=== PATIENT | female | born 2000 | race Caucasian/White ===

== ENCOUNTER 2020-10-06 15:53 | Outpatient (REF) | payer OTHER, SELFPAY ==
--- NOTE | ~2020-10-06 | XR_ITS ---
EXAMINATION: XR ANKLE, RIGHT CLINICAL INFORMATION: Sprain. COMPARISON: None TECHNIQUE: AP, lateral, and mortise views of the right ankle. FINDINGS: The bones and soft tissues are normal. No fracture. Alignment is anatomic. Joint spaces are maintained. No joint effusion. XR/XR ankle RT min 3V IMPRESSION: Normal right ankle.
== END 2020-10-06 15:54 | disposition home or self-care (01) ==
LOC: HO.HMGCX 15:53
PROVIDERS: Visit Provider Internal Medicine
DX: S93.401A Sprain of unspecified ligament of right ankle, initial encounter (principal)
CPT/HCPCS: 73610

== ENCOUNTER 2020-11-06 20:12 | Emergency (ER) | payer OTHER, SELFPAY ==
--- NOTE | ~2020-11-06 | XR_ITS ---
EXAMINATION: XR ABDOMEN KUB CLINICAL INDICATION: Diffuse abdominal discomfort COMPARISON: None TECHNIQUE: AP view of the abdomen. XR/XR KUB FINDINGS/IMPRESSION: Mild constipation. No evidence of obstruction. No unusual soft tissue calcifications are noted. The bones are unremarkable.
[2020-11-06 20:31] VITALS: BP 129/70; PULSE 89; RESP 18; TEMP 36.7; O2SAT 100; BMI 18.6
--- NOTE | 2020-11-06 22:17 | ED_ITS ---
HPI - Abdominal Pain General Chief Complaint: Abdominal Pain Stated Complaint: abdominal pain Time Seen by Provider: 11/06/20 21:31 Source: patient Mode of arrival: ambulatory History of Present Illness HPI narrative: 20-year-old female who presents with abdominal discomfort that has increased and is now reported as being diffuse without associated fever, chills, nausea, vomiting, shortness of breath/chest pain/palpitations, and last bowel movement was this morning. Otherwise, she is denying any urinary pain test burning/frequency. Patient takes Remeron as prescribed for appetite and denies any surgical history in the abdomen. Related Data Home Medications Medication Instructions Recorded Confirmed medroxyprogesterone 150 mg/mL 150 mg IM [id number] 10/06/20 intramuscular syringe omeprazole 20 mg capsule,delayed 20 mg PO DAILY 10/06/20 release Allergies Allergy/AdvReac Type Severity Reaction Status Date / Time No Known Allergies Allergy Unverified 10/06/20 15:23 [No Known Allergies*] Review of Systems Review of Systems Pertinent positives and negatives as stated in HPI 10 point review of systems is otherwise negative. Physical Exam Vital Signs: Vital Signs: Last Vital Signs Temp 98.7 F 11/07/20 00:00 Pulse 74 11/07/20 00:00 Resp 16 11/07/20 00:00 BP 105/64 11/07/20 00:00 Pulse Ox 98 11/07/20 00:00 Body Mass Index 18.6 VITAL SIGNS: Reviewed. GENERAL: Well developed, well nourished, in no acute distress. HEAD: Normocephalic/atraumatic EYES: PERRLA, EOMI OROPHARYNX: no oral lesions noted, posterior pharynx clear LUNGS: Normal breath sounds. No adventitious sounds or accessory muscle use. SpO2<98> CARDIOVASCULAR: Regular rate and rhythm without noted murmurs ABDOMEN: Soft, diffuse tenderness without rebound, non-distended with bowel sounds. NEUROLOGIC: Alert and oriented x 4. Strength and sensation to light touch were grossly intact x 4. Course Course Course Narrative: 20-year-old female with history and clinical presentation consistent with possible muscular etiology for abdominal discomfort the absence of any associated symptoms and denies diarrhea. Review of all investigations negative for any acute findings and patient declined combination analgesics and will be discharged home in stable condition with instructions to follow-up with her primary care provider in the morning. MDM - Abdominal Pain Lab Data Result diagrams: 11/06/20 22:53 11/06/20 22:53 Labs: Lab Results 11/06/20 11/06/20 11/06/20 Range/Units 22:53 22:53 22:53 WBC 8.9 (4.8-10.8) X10*3/uL RBC 4.07 L (4.20-5.50) X10*6/uL Hgb 12.9 (12.0-16.0) g/dl Hct 38.4 (37-47) % MCV 94.3 (80-98) fL MCH 31.7 (27.0-33.0) pg MCHC 33.6 (31.0-35.0) g/dl RDW 11.9 (11.0-16.0) % Plt Count 252 (160-400) X10*3/uL MPV 11.1 (9.4-12.3) fL Immature Gran % (Auto) 0.1 (0.0-0.4) % Neut % (Auto) 56.9 (45-73) % Lymph % (Auto) 32.9 (20-40) % [place] % (Auto) 8.7 (2-11) % Eos % (Auto) 1.1 (0-4) % Baso % (Auto) 0.3 (0-2) % Lymph # (Auto) 2.9 (1.2-4.9) X10*3/uL [place] # (Auto) 0.8 (0.1-1.2) X10*3/uL Eos # (Auto) 0.1 (0.0-0.4) X10*3/uL Baso # (Auto) 0.0 (0.0-0.2) X10*3/uL Abs Immat Gran (auto) 0.01 (0.00-0.03) X10*3/uL Absolute Neuts (auto) 5.0 (2.0-8.3) X10*3/uL Absolute Nucleated RBC 0.000 (0.0-0.012) X10*3/uL Nucleated RBC % (auto) 0.0 (0.0-0.2) /100WBC Sodium 143 (135-145) mmol/L Potassium 3.6 (3.3-5.1) mmol/L Chloride 108 (96-108) mmol/L Carbon Dioxide 27 (22-29) mmol/L Anion Gap 12 (12-20) BUN 14 (9-16) mg/dL Creatinine 0.71 (0.5-1.4) mg/dL Estim Creat Clear Calc 94.2 Estimated GFR > 60 Random Glucose 76 (60-115) mg/dL Calcium 9.2 (8.4-10.2) mg/dL Total Bilirubin 0.4 (0.0-1.0) mg/dL AST 24 (5-31) U/L ALT 23 (0-31) U/L Alkaline Phosphatase 94 (39-117) U/L Total Protein 7.2 (6.5-8.0) g/dL Albumin 4.2 (3.5-5.0) g/dL Lipase 49 (8-78) U/L Urine Color YELLOW Urine Appearance CLEAR Urine pH 6.5 (5.0-8.0) Ur Specific [place] 1.020 (1.005-1.025) Urine Protein NEG (NEG-TRACE) MG/DL Urine Glucose (UA) NEG (NEG) MG/DL Urine Ketones NEG (NEG) MG/DL Urine Blood TRACE (NEG) Urine Nitrite NEG (NEG) Ur Leukocyte Esterase NEG (NEG) Urine RBC 1-4 (0) /HPF Urine WBC 0 (0-4) /HPF Ur Squamous Epith Cells 1+ /LPF Urine Bacteria TRACE /LPF Urine Test (NEGATIVE) 11/06/20 Range/Units 22:53 WBC (4.8-10.8) X10*3/uL RBC (4.20-5.50) X10*6/uL Hgb (12.0-16.0) g/dl Hct (37-47) % MCV (80-98) fL MCH (27.0-33.0) pg MCHC (31.0-35.0) g/dl RDW (11.0-16.0) % Plt Count (160-400) X10*3/uL MPV (9.4-12.3) fL Immature Gran % (Auto) (0.0-0.4) % Neut % (Auto) (45-73) % Lymph % (Auto) (20-40) % [place] % (Auto) (2-11) % Eos % (Auto) (0-4) % Baso % (Auto) (0-2) % Lymph # (Auto) (1.2-4.9) X10*3/uL [place] # (Auto) (0.1-1.2) X10*3/uL Eos # (Auto) (0.0-0.4) X10*3/uL Baso # (Auto) (0.0-0.2) X10*3/uL Abs Immat Gran (auto) (0.00-0.03) X10*3/uL Absolute Neuts (auto) (2.0-8.3) X10*3/uL Absolute Nucleated RBC (0.0-0.012) X10*3/uL Nucleated RBC % (auto) (0.0-0.2) /100WBC Sodium (135-145) mmol/L Potassium (3.3-5.1) mmol/L Chloride (96-108) mmol/L Carbon Dioxide (22-29) mmol/L Anion Gap (12-20) BUN (9-16) mg/dL Creatinine (0.5-1.4) mg/dL Estim Creat Clear Calc Estimated GFR Random Glucose (60-115) mg/dL Calcium (8.4-10.2) mg/dL Total Bilirubin (0.0-1.0) mg/dL AST (5-31) U/L ALT (0-31) U/L Alkaline Phosphatase (39-117) U/L Total Protein (6.5-8.0) g/dL Albumin (3.5-5.0) g/dL Lipase (8-78) U/L Urine Color Urine Appearance Urine pH (5.0-8.0) Ur Specific [place] (1.005-1.025) Urine Protein (NEG-TRACE) MG/DL Urine Glucose (UA) (NEG) MG/DL Urine Ketones (NEG) MG/DL Urine Blood (NEG) Urine Nitrite (NEG) Ur Leukocyte Esterase (NEG) Urine RBC (0) /HPF Urine WBC (0-4) /HPF Ur Squamous Epith Cells /LPF Urine Bacteria /LPF Urine Test NEGATIVE (NEGATIVE) Discharge Plan Discharge Clinical Impression: Abdominal discomfort Patient Disposition: Home, Self-Care Instructions: Abdominal Pain (ED) Additional Instructions: Follow-up with your primary care provider in the morning for re-evaluation and further outpatient management of your symptoms. Return to the ER for any acute worsening of your symptoms. Prescriptions: No Action medroxyprogesterone 150 mg/mL syringe 150 mg IM [id number] RF: 0 omeprazole 20 mg capsule,delayed release(DR/EC) 20 mg PO DAILY RF: 0 Referrals: Jah Stallings MD [Primary Care Provider] - 2 days (Patient seen for abdominal pain with a negative workup.) PMFSH Past Medical History Source: nursing notes reviewed Social History Social History Advance Directives: No Advance Directives Information Provided: No Patient : No
[2020-11-06 23:00] LABS: MANUAL DIFF FLAG NO
[2020-11-06 23:01] LABS: Basophils Percent Auto 0.3 % (0-2); Eosinophils Absolute Auto 0.1 X10*3/uL (0.0-0.4); Eosinophils Percent Auto 1.1 % (0-4); Glucose Urine UA NEG (NEG); Hematocrit 38.4 % (37-47); Hemoglobin 12.9 g/dl (12.0-16.0); Imm Gran Abs Auto 0.01 X10*3/uL (0.00-0.03); Imm Gran Pct Auto 0.1 % (0.0-0.4); Leukocyte Esterase Urine NEG (NEG); Lymphocytes Absolute Auto 2.9 X10*3/uL (1.2-4.9); Lymphocytes Percent Auto 32.9 % (20-40); Mean Corpuscular HGB Conc 33.6 g/dl (31.0-35.0); Mean Corpuscular Hemoglobin 31.7 pg (27.0-33.0); Mean Corpuscular Volume 94.3 fL (80-98); Mean Platelet Volume 11.1 fL (9.4-12.3); Monocytes Absolute Auto 0.8 X10*3/uL (0.1-1.2); Monocytes Percent Auto 8.7 % (2-11); Neutrophils Percent Auto 56.9 % (45-73); Nitrite Urine NEG (NEG); PH 6.5 (5.0-8.0); Platelet Count 252 X10*3/uL (160-400); Red Blood Count 4.07 X10*6/uL (4.20-5.50); Red Cell Distribution Width 11.9 % (11.0-16.0); Urine Blood TRACE (NEG); Urine Ketones NEG (NEG); Urine Protein NEG (NEG-TRACE); White Blood Count 8.9 X10*3/uL (4.8-10.8)
[2020-11-06 23:03] LABS: Appearance Urine CLEAR; Color Urine YELLOW
[2020-11-06 23:04] LABS: UPreg QC Valid YES; Urine Pregnancy NEGATIVE (NEGATIVE)
[2020-11-06 23:14] LABS: Bacteria Urine TRACE /LPF; Squamous Epithelial Cell Urine 1+ /LPF; WBC Urine 0 /HPF (0-4)
[2020-11-06 23:24] LABS: Alanine Aminotransferase 23 U/L (0-31); Albumin Level 4.2 g/dL (3.5-5.0); Alkaline Phosphatase 94 U/L (39-117); Anion Gap 12 (12-20); Aspartate Amino Transferase 24 U/L (5-31); Bilirubin Total 0.4 mg/dL (0.0-1.0); Blood Urea Nitrogen 14 mg/dL (9-16); Calcium 9.2 mg/dL (8.4-10.2); Carbon Dioxide 27 mmol/L (22-29); Chloride 108 mmol/L (96-108); Creatinine Clr Calc Pharmacy 94.2; Estimated Glomerular Filt Rate > 60; Glucose Random 76 mg/dL (60-115); Lipase 49 U/L (8-78); Potassium 3.6 mmol/L (3.3-5.1); Sodium 143 mmol/L (135-145); Total Protein 7.2 g/dL (6.5-8.0)
[2020-11-07] VITALS: BP 105/64; PULSE 74; RESP 16; TEMP 37.1; O2SAT 98
--- NOTE | 2020-11-07 00:36 | PC.NURSE ---
dr palomo aware pt refusing po meds as ordered
== END 2020-11-07 02:15 | disposition home or self-care (01) ==
PROVIDERS: Emergency Provider Student in an Organized Health Care Education/Training Program; PCP Internal Medicine
DX: R10.9 Unspecified abdominal pain (principal)
CPT/HCPCS: 36415; 74018; 80053; 81001; 81003; 81025; 83690; 85025; 99283; 99284

== ENCOUNTER 2021-08-03 13:35 | Emergency (ER) | payer OTHER, SELFPAY ==
[2021-08-03 13:57] VITALS: BP 117/81; PULSE 77; RESP 19; TEMP 37.1; O2SAT 99; BMI 18.6
[2021-08-03 14:41] LABS: MANUAL DIFF FLAG NO
[2021-08-03 14:42] LABS: Basophils Percent Auto 0.4 % (0-2); Eosinophils Absolute Auto 0.1 X10*3/uL (0.0-0.4); Eosinophils Percent Auto 0.7 % (0-4); Hematocrit 36.7 % (37.0-47.0); Hemoglobin 12.3 g/dl (12.0-16.0); Imm Gran Abs Auto 0.01 X10*3/uL (0.00-0.03); Imm Gran Pct Auto 0.1 % (0.0-0.4); Lymphocytes Absolute Auto 2.7 X10*3/uL (1.2-4.9); Lymphocytes Percent Auto 36.8 % (20-40); Mean Corpuscular HGB Conc 33.5 g/dl (31.0-35.0); Mean Corpuscular Hemoglobin 31.1 pg (27.0-33.0); Mean Corpuscular Volume 92.9 fL (80.0-98.0); Mean Platelet Volume 11.7 fL (9.4-12.3); Monocytes Absolute Auto 0.5 X10*3/uL (0.1-1.2); Monocytes Percent Auto 6.9 % (2-11); Neutrophils Percent Auto 55.1 % (45-73); Platelet Count 203 X10*3/uL (160-400); Red Blood Count 3.95 X10*6/uL (4.20-5.50); Red Cell Distribution Width 11.8 % (11.0-16.0); White Blood Count 7.3 X10*3/uL (4.8-10.8)
[2021-08-03 14:56] LABS: Appearance Urine HAZY; Color Urine YELLOW; Glucose Urine UA NEG (NEG); Leukocyte Esterase Urine NEG (NEG); Nitrite Urine NEG (NEG); PH 5.5 (5.0-8.0); Specific Gravity - Urine >= 1.030 (1.005-1.025); UACC Culture Trigger NO; Urine Blood TRACE (NEG); Urine Ketones 5 MG/DL (NEG); Urine Protein NEG (NEG-TRACE)
[2021-08-03 14:58] LABS: Alanine Aminotransferase 12 U/L (0-31); Albumin Level 4.4 g/dL (3.5-5.0); Alkaline Phosphatase 74 U/L (39-117); Anion Gap 12 (12-20); Aspartate Amino Transferase 20 U/L (5-31); Bilirubin Direct 0.4 mg/dL (0.0-0.5); Bilirubin Total 1.1 mg/dL (0.0-1.0); Blood Urea Nitrogen 14 mg/dL (9-16); Calcium 9.6 mg/dL (8.4-10.2); Carbon Dioxide 24 mmol/L (22-29); Chloride 107 mmol/L (96-108); Creatinine Clr Calc Pharmacy 92.9; Estimated Glomerular Filt Rate > 60; Glucose Random 88 mg/dL (60-115); Lipase 33 U/L (8-78); Potassium 3.9 mmol/L (3.3-5.1); Sodium 139 mmol/L (135-145); Total Protein 7.3 g/dL (6.5-8.0)
[2021-08-03 14:58] LABS: UPreg QC Valid YES; Urine Pregnancy NEGATIVE (NEGATIVE)
[2021-08-03 15:09] LABS: RBC Urine 0-2 /HPF (0); Squamous Epithelial Cell Urine 1+ /LPF; WBC Urine 0-2 /HPF (0-4)
[2021-08-03 15:10] LABS: Bacteria Urine TRACE /LPF; Mucus Urine 1+ /LPF
--- NOTE | 2021-08-03 15:13 | ED_ITS ---
HPI - Abdominal Pain General Chief Complaint: Abdominal Pain Stated Complaint: abd pain Time Seen by Provider: 08/03/21 14:07 Source: patient Mode of arrival: ambulatory Limitations: no limitations History of Present Illness HPI narrative: 20 y/o female presenting to the ER with 1 week of upper abdominal pain and n ausea. She also reports 1 episode of non-bloody diarrhea today. She states the pain is worse in the morning and worse on an empty stomach. She also states that whenever she eats the pain is worse. It is a gnawing and aching type pain. She denies any radiation. She reports ongoing nausea but no episodes of vomiting. She had similar episodes couple years ago, was seen by a GI doctor and was told was due to the marijuana she was smoking. She stopped smoking marijuana for several weeks with no improvement in her symptoms. She states she has been having difficulty gaining weight. She has been only able to tolerate a very limited diet including soup and bland things. MD elicited complaint: abdominal pain Pertinent past history: none Onset (ago): week(s) (1) Pain Consistency: constant Location: epigastric Severity: severe Quality: aching Radiation: none Migration to: no migration Exacerbating factors: eating and other (morning) Relieving factors: nothing Associated symptoms: nausea and diarrhea (once, nonbloody) Related Data Patient : No Home Medications Medication Instructions Recorded Confirmed medroxyprogesterone 150 mg/mL 150 mg IM [id number] 10/06/20 intramuscular syringe omeprazole 20 mg capsule,delayed 20 mg PO DAILY 10/06/20 release Previous Rx's Medication Instructions Recorded pantoprazole 40 mg tablet,delayed 40 mg PO DAILY #30 tab 08/03/21 release (Protonix) sucralfate 1 gram tablet (Carafate) 1 g PO BID #30 tab 08/03/21 Allergies Allergy/AdvReac Type Severity Reaction Status Date / Time No Known Allergies Allergy Unverified 10/06/20 15:23 [No Known Allergies*] Review of Systems Review of Systems Constitutional: No Fever, No Chills ENT/Mouth: No sore throat, No Rhinorrhea, No Swallowing Difficulty Cardiovascular: No Chest Pain, No SOB Respiratory: No Cough, No Sputum Gastrointestinal: + Nausea, No Vomiting, + Diarrhea, + abdominal Pain, No Hematochezia, No Melena Genitourinary: No Dysuria, No Urinary Frequency, No Hematuria Musculoskeletal: No joint pain, No Myalgias Skin: No Skin Lesions, No rash Neuro: No Weakness, No Numbness, No Dizziness, No Headache Psych: + Anxiety/Panic, + Depression Heme/Lymph: No Bruising, No Lymphadenopathy PMFSH Past Medical History Medical History (Updated 08/03/21 @ 15:27 by EVONNE De La Torre) Anemia Social History Social History Advance Directives: No Advance Directives Information Provided: No Patient : No Physical Exam ED Vital Signs: Vital Signs - 24 hr 08/03/21 13:57 Temperature 98.8 F Pulse Rate 77 Respiratory Rate 19 Blood Pressure 117/81 Pulse Oximetry 99 BMI result Body Mass Index 18.6 Appearance: Alert. Oriented X3. No acute distress. Eyes: Pupils equal, round and reactive to light. ENT: Pharynx normal. Neck: Normal inspection. Neck supple. CVS: Normal heart rate and rhythm. Pulses normal. Respiratory: No respiratory distress. Breath sounds normal. Abdomen: Flat, Soft with mild epigastric tenderness. no rebound or guarding. No RUQ tenderness. normal +BS x4 Skin: Skin warm and dry. Normal skin color. Normal skin turgor. No rashes. Extremities: No lower extremity edema. Neuro: Oriented X 3. No motor deficit. No sensory deficit. Course Course Course Narrative: 28-year-old female presents to the ER with epigastric pain for the last 1 week, worse with food. Her vital signs are normal on arrival in her exam is benign. Her abdomen is soft. Her labs are normal. Her symptoms may be due to gastritis versus possible peptic ulcers. She has no signs of GI bleeding. Will plan to start her on higher dose PPI and Carafate. Will refer to GI for further evaluation and treatment. Instructed to keep a food diary to observe any connections with her symptoms to certain foods. She states she has been tested for celiac disease in the past and it was negative. She agrees to follow back up with GI for further evaluation. MDM - Abdominal Pain Lab Data Result diagrams: 08/03/21 14:37 08/03/21 14:37 Labs: Lab Results 08/03/21 08/03/21 08/03/21 Range/Units 14:37 14:37 14:46 WBC 7.3 (4.8-10.8) X10*3/uL RBC 3.95 L (4.20-5.50) X10*6/uL Hgb 12.3 (12.0-16.0) g/dl Hct 36.7 L (37.0-47.0) % MCV 92.9 (80.0-98.0) fL MCH 31.1 (27.0-33.0) pg MCHC 33.5 (31.0-35.0) g/dl RDW 11.8 (11.0-16.0) % Plt Count 203 (160-400) X10*3/uL MPV 11.7 (9.4-12.3) fL Immature Gran % (Auto) 0.1 (0.0-0.4) % Neut % (Auto) 55.1 (45-73) % Lymph % (Auto) 36.8 (20-40) % [place] % (Auto) 6.9 (2-11) % Eos % (Auto) 0.7 (0-4) % Baso % (Auto) 0.4 (0-2) % Lymph # (Auto) 2.7 (1.2-4.9) X10*3/uL [place] # (Auto) 0.5 (0.1-1.2) X10*3/uL Eos # (Auto) 0.1 (0.0-0.4) X10*3/uL Baso # (Auto) 0.0 (0.0-0.2) X10*3/uL Abs Immat Gran (auto) 0.01 (0.00-0.03) X10*3/uL Absolute Neuts (auto) 4.0 (2.0-8.3) x10*3/uL Absolute Nucleated RBC 0.000 (0.0-0.012) X10*3/uL Nucleated RBC % (auto) 0.0 (0.0-0.2) /100WBC Sodium 139 (135-145) mmol/L Potassium 3.9 (3.3-5.1) mmol/L Chloride 107 (96-108) mmol/L Carbon Dioxide 24 (22-29) mmol/L Anion Gap 12 (12-20) BUN 14 (9-16) mg/dL Creatinine 0.72 (0.5-1.4) mg/dL Estim Creat Clear Calc 92.9 Estimated GFR > 60 Random Glucose 88 (60-115) mg/dL Calcium 9.6 (8.4-10.2) mg/dL Total Bilirubin 1.1 H (0.0-1.0) mg/dL Direct Bilirubin 0.4 (0.0-0.5) mg/dL AST 20 (5-31) U/L ALT 12 (0-31) U/L Alkaline Phosphatase 74 D (39-117) U/L Total Protein 7.3 (6.5-8.0) g/dL Albumin 4.4 (3.5-5.0) g/dL Lipase 33 (8-78) U/L Urine Color YELLOW Urine Appearance HAZY Urine pH 5.5 (5.0-8.0) Ur Specific [place] >= 1.030 H (1.005-1.025) Urine Protein NEG (NEG-TRACE) MG/DL Urine Glucose (UA) NEG (NEG) MG/DL Urine Ketones 5 (NEG) MG/DL Urine Blood TRACE (NEG) Urine Nitrite NEG (NEG) Ur Leukocyte Esterase NEG (NEG) Urine RBC 0-2 (0) /HPF Urine WBC 0-2 (0-4) /HPF Ur Squamous Epith Cells 1+ /LPF Urine Bacteria TRACE /LPF Urine Mucus 1+ /LPF Urine Test (NEGATIVE) 08/03/21 Range/Units 14:46 WBC (4.8-10.8) X10*3/uL RBC (4.20-5.50) X10*6/uL Hgb (12.0-16.0) g/dl Hct (37.0-47.0) % MCV (80.0-98.0) fL MCH (27.0-33.0) pg MCHC (31.0-35.0) g/dl RDW (11.0-16.0) % Plt Count (160-400) X10*3/uL MPV (9.4-12.3) fL Immature Gran % (Auto) (0.0-0.4) % Neut % (Auto) (45-73) % Lymph % (Auto) (20-40) % [place] % (Auto) (2-11) % Eos % (Auto) (0-4) % Baso % (Auto) (0-2) % Lymph # (Auto) (1.2-4.9) X10*3/uL [place] # (Auto) (0.1-1.2) X10*3/uL Eos # (Auto) (0.0-0.4) X10*3/uL Baso # (Auto) (0.0-0.2) X10*3/uL Abs Immat Gran (auto) (0.00-0.03) X10*3/uL Absolute Neuts (auto) (2.0-8.3) x10*3/uL Absolute Nucleated RBC (0.0-0.012) X10*3/uL Nucleated RBC % (auto) (0.0-0.2) /100WBC Sodium (135-145) mmol/L Potassium (3.3-5.1) mmol/L Chloride (96-108) mmol/L Carbon Dioxide (22-29) mmol/L Anion Gap (12-20) BUN (9-16) mg/dL Creatinine (0.5-1.4) mg/dL Estim Creat Clear Calc Estimated GFR Random Glucose (60-115) mg/dL Calcium (8.4-10.2) mg/dL Total Bilirubin (0.0-1.0) mg/dL Direct Bilirubin (0.0-0.5) mg/dL AST (5-31) U/L ALT (0-31) U/L Alkaline Phosphatase (39-117) U/L Total Protein (6.5-8.0) g/dL Albumin (3.5-5.0) g/dL Lipase (8-78) U/L Urine Color Urine Appearance Urine pH (5.0-8.0) Ur Specific [place] (1.005-1.025) Urine Protein (NEG-TRACE) MG/DL Urine Glucose (UA) (NEG) MG/DL Urine Ketones (NEG) MG/DL Urine Blood (NEG) Urine Nitrite (NEG) Ur Leukocyte Esterase (NEG) Urine RBC (0) /HPF Urine WBC (0-4) /HPF Ur Squamous Epith Cells /LPF Urine Bacteria /LPF Urine Mucus /LPF Urine Test NEGATIVE (NEGATIVE) Critical Care Time Critical Care Time Critical Care Time: No Discharge Plan Discharge Clinical Impression: Gastritis Patient Disposition: Home, Self-Care Instructions: Gastritis (DC), Diet for Stomach Ulcers and Gastritis (ED) Additional Instructions: Your lab workup today was unremarkable. Your pain is most likely due to gastritis which is and irritation and inflammation of your stomach lining. Start taking the prescribed medication as directed for this. Stick to a bland diet. Avoid foods high in acid, avoid alcohol and NSAID medications like Aleve, Motrin, Advil or ibuprofen. Follow up with your doctor as needed. Follow up with GI doctor if you symptoms persist despite dietary modifications and medication. If you develop new or worsening symptoms call 911 or come back to the ER for further evaluation. Prescriptions: New pantoprazole [Protonix] 40 mg tablet,delayed release (DR/EC) 40 mg PO DAILY Qty: 30 0RF sucralfate [Carafate] 1 gram tablet 1 g PO BID Qty: 30 0RF No Action medroxyprogesterone 150 mg/mL syringe 150 mg IM [id number] 0RF omeprazole 20 mg capsule,delayed release(DR/EC) 20 mg PO DAILY 0RF Referrals: Hua Lozada MD [Physician] - 1 week (gastritis vs PUD)
== END 2021-08-03 15:53 | disposition home or self-care (01) ==
PROVIDERS: Emergency Provider Emergency Medicine
DX: K29.70 Gastritis, unspecified, without bleeding (principal); R10.9 Unspecified abdominal pain
CPT/HCPCS: 36415; 80048; 80076; 81001; 81025; 83690; 85025; 99283; 99284

== ENCOUNTER 2021-10-27 12:42 | Outpatient (REF) | payer OTHER, SELFPAY ==
[2021-10-27 12:55] LABS: MANUAL DIFF FLAG NO
[2021-10-27 13:25] LABS: Basophils Percent Auto 0.4 % (0-2); Eosinophils Absolute Auto 0.1 X10*3/uL (0.0-0.4); Eosinophils Percent Auto 1.1 % (0-4); Hematocrit 35.7 % (37.0-47.0); Hemoglobin 12.2 g/dl (12.0-16.0); Imm Gran Abs Auto 0.02 X10*3/uL (0.00-0.03); Imm Gran Pct Auto 0.2 % (0.0-0.4); Lymphocytes Absolute Auto 2.9 X10*3/uL (1.2-4.9); Mean Corpuscular HGB Conc 34.2 g/dl (31.0-35.0); Mean Corpuscular Hemoglobin 31.6 pg (27.0-33.0); Mean Corpuscular Volume 92.5 fL (80.0-98.0); Mean Platelet Volume 12.2 fL (9.4-12.3); Monocytes Absolute Auto 0.5 X10*3/uL (0.1-1.2); Monocytes Percent Auto 5.9 % (2-11); Neutrophils Percent Auto 58.4 % (45-73); Platelet Count 217 X10*3/uL (160-400); Red Blood Count 3.86 X10*6/uL (4.20-5.50); Red Cell Distribution Width 11.9 % (11.0-16.0); White Blood Count 8.5 X10*3/uL (4.8-10.8)
[2021-10-27 13:35] LABS: Alanine Aminotransferase 10 U/L (0-31); Albumin Level 4.4 g/dL (3.5-5.0); Alkaline Phosphatase 80 U/L (39-117); Anion Gap 12 (12-20); Aspartate Amino Transferase 17 U/L (5-31); Bilirubin Total 1.1 mg/dL (0.0-1.0); Blood Urea Nitrogen 11 mg/dL (9-16); C Reactive Protein 0.04 mg/dL (< or = 0.50); Calcium 9.3 mg/dL (8.4-10.2); Carbon Dioxide 23 mmol/L (22-29); Chloride 108 mmol/L (96-108); Estimated Glomerular Filt Rate > 60; Glucose Random 89 mg/dL (60-115); Potassium 3.9 mmol/L (3.3-5.1); Sodium 139 mmol/L (135-145); Total Protein 7.4 g/dL (6.5-8.0)
[2021-10-27 13:58] LABS: Ferritin 128 ng/mL (10-122); TSH reflex Free T4 1.05 uIU/mL (0.32-4.0); Vitamin D 25-OH Total 29.7 ng/mL (>30)
[2021-10-27 14:01] LABS: Cortisol Random 5.4 ug/dL
[2021-10-27 14:12] LABS: Folate 15.1 ng/mL (> or = 4.0); Vitamin B12 546 pg/mL (200-900)
[2021-10-27 16:07] LABS: Appearance Urine CLOUDY; Color Urine DK YELLOW; Glucose Urine UA NEG (NEG); Leukocyte Esterase Urine 2+ (NEG); Nitrite Urine NEG (NEG); Specific Gravity - Urine >= 1.030 (1.005-1.025); UACC Culture Trigger YES; Urine Blood 3+ (NEG); Urine Ketones NEG (NEG); Urine Protein TRACE MG/DL (NEG-TRACE)
[2021-10-27 16:25] LABS: Bacteria Urine 3+ /LPF; Mucus Urine 1+ /LPF; Squamous Epithelial Cell Urine 3+ /LPF; WBC Clumps Urine NOTED; WBC Urine 50-75 /HPF (0-4)
[2021-10-31 23:58] LABS: Vitamin B5 (Pantothenic Acid) <40 ng/mL (<275)
[2021-11-01 00:57] LABS: Zinc 67 mcg/dL (60-130)
[2021-11-01 11:47] LABS: Nicotinamide <20 ng/mL; Vit B3 - Nicotinic Acid <20 ng/mL
[2021-11-02 06:36] LABS: Transglutaminase Ab IgG <1.0 U/mL; Transglutaminase IgA <1.0 U/mL
== END 2021-10-27 12:43 | disposition home or self-care (01) ==
LOC: HO.LAB 12:42
PROVIDERS: Visit Provider Internal Medicine Gastroenterology
DX: R10.33 Periumbilical pain (principal); R10.10 Upper abdominal pain, unspecified; R30.0 Dysuria; D64.9 Anemia, unspecified; G89.29 Other chronic pain; K75.81 Nonalcoholic steatohepatitis (NASH)
CPT/HCPCS: 36415; 80053; 81001; 82180; 82306; 82533; 82550; 82607; 82728; 82746; 84443; 84591; 84630; 85025; 86140; 86364; 87086

== ENCOUNTER 2021-10-30 06:15 | Outpatient (REF) | payer OTHER, SELFPAY ==
[2021-10-30 09:13] LABS: Appearance Urine HAZY; Color Urine YELLOW; Glucose Urine UA NEG (NEG); Leukocyte Esterase Urine 1+ (NEG); Nitrite Urine NEG (NEG); Specific Gravity - Urine >= 1.030 (1.005-1.025); UACC Culture Trigger YES; Urine Blood 2+ (NEG); Urine Ketones 5 MG/DL (NEG); Urine Protein 1+ MG/DL (NEG-TRACE)
[2021-10-30 09:49] LABS: Mucus Urine 1+ /LPF; Squamous Epithelial Cell Urine 1+ /LPF
[2021-10-30 09:50] LABS: Bacteria Urine 1+ /LPF
[2021-11-03 15:33] LABS: Vitamin A 28 mcg/dL (38-98)
[2021-11-05 13:27] LABS: Vitamin B6 18.2 ng/mL (2.1-21.7)
== END 2021-10-30 06:16 | disposition home or self-care (01) ==
LOC: HO.LAB 06:15
PROVIDERS: Visit Provider Internal Medicine Gastroenterology
DX: R10.10 Upper abdominal pain, unspecified (principal); D64.9 Anemia, unspecified; R30.0 Dysuria
CPT/HCPCS: 36415; 81001; 84207; 84590; 87086

== ENCOUNTER 2021-11-17 14:48 | Outpatient (REF) | payer OTHER, SELFPAY ==
[2021-11-18 14:12] LABS: H Pylori Breath Test Negative (Negative)
== END 2021-11-17 14:49 | disposition home or self-care (01) ==
LOC: HO.LNP 14:48
PROVIDERS: Visit Provider Internal Medicine Gastroenterology
DX: R10.10 Upper abdominal pain, unspecified (principal); R30.0 Dysuria
CPT/HCPCS: 83013

== ENCOUNTER 2021-12-11 12:35 | Outpatient (REF) | payer OTHER, SELFPAY ==
--- NOTE | ~2021-12-11 | US_ITS ---
EXAMINATION: US ABDOMEN COMPLETE CLINICAL INFORMATION: Abdominal pain. COMPARISON: X-ray KUB 11/07/2020. TECHNIQUE: Real-time imaging of the abdominal viscera. FINDINGS: PANCREAS: Normal. ABDOMINAL AORTA: The proximal, mid, and distal segments are normal in caliber. INFERIOR VENA CAVA: Visualized portions are normal. LIVER: Normal. The liver is normal in size. The liver contour is normal. Parenchymal echogenicity is normal. No focal hepatic lesion. There is no intrahepatic biliary duct dilatation seen. GALLBLADDER: Normal. The gallbladder is physiologically distended without evidence of stones, sludge, polyps, wall thickening or pericholecystic fluid. COMMON BILE DUCT: Normal in caliber measuring 0.18 cm in diameter. RIGHT KIDNEY: Normal. No hydronephrosis. No renal calculi or focal parenchymal lesions. The kidney measures 10.5 cm in maximum dimension. LEFT KIDNEY: Normal. No hydronephrosis. No renal calculi or focal parenchymal lesions. The kidney measures 9.0 cm in maximum dimension. SPLEEN: Normal. The spleen measures 8.3 cm in maximum dimension. FREE FLUID: None. US/US abdomen complete IMPRESSION: Unremarkable examination.
--- NOTE | ~2021-12-11 | US_ITS ---
EXAMINATION: US PELVIS CLINICAL INFORMATION: Dysuria; the last menstrual period was greater than 3 years prior. COMPARISON: None TECHNIQUE: Ultrasound of the pelvis is performed using both transabdominal and transvaginal transducers along with Doppler. Transvaginal imaging is performed due to inadequate visualization transabdominally. FINDINGS: Uterus: The uterus is anteverted and measures 6.2 x 3.0 x 3.6 cm. There is an arcuate configuration of the uterus. The double wall endometrial thickness is 3-5 mm. The uterus is smooth in contour and has normal myometrial echogenicity. No visible fibroid. Adnexa: Both ovaries are visualized. There is normal color flow to the adnexa. No adnexal masses seen. There is no ovarian torsion. There is a very small amount of free fluid within the cul-de-sac. Right ovary measures 2.9 x 2.1 x 2.9 cm (volume 8.9 mL). Left ovary measures 2.4 x 1.7 x 1.8 cm (volume 3.7 mL). US/US pelvic and transvaginal IMPRESSION: 1. There is a somewhat arcuate configuration of the uterus. 2. There is a very small amount of nonspecific free fluid within the cul-de-sac.
== END 2021-12-11 12:36 | disposition home or self-care (01) ==
LOC: HO.US 12:35
PROVIDERS: Visit Provider Internal Medicine Gastroenterology
DX: R10.10 Upper abdominal pain, unspecified (principal); R30.0 Dysuria
CPT/HCPCS: 76700; 76830; 76856

== ENCOUNTER 2022-01-11 13:15 | Day surgery (SDC) | payer OTHER, SELFPAY ==
[2022-01-11 13:41] VITALS: BMI 18.6
[2022-01-11] MEDS: Lactated Ringers 1,000 ML 50 ML IVCONT (13:54)
--- NOTE | 2022-01-11 13:55 | HO.ANESPROP2 ---
HPI - Anesthesia Eval Consult details Narrative: 21 F for EGD Anemia . h/o right sided chest pain . As per PCP muskuloskeletal in nature . Currently denies any chest pain . Functional status greater than 4 mets PMFSH Active Problems Active Problems: All Active Problems (Updated 10/27/21 @ 12:26 by Jovan Moran MD) Anemia (Acute) Upper abdominal pain (Acute) Dysuria (Acute) Ankle sprain (Acute) Past Medical History Medical History (Updated 10/27/21 @ 12:26 by Jovan Moran MD) Anemia Family History Family History (Updated 10/27/21 @ 12:00 by RUSSEL Amador) Maternal Grandmother Diabetes Maternal Grandfather Throat cancer Maternal Aunt Breast cancer Family history of problems with anesthesia: No Surgical History History of Problems with Anesthesia: No Social History Social History Patient Tobacco Use Status: Never used Tobacco Meds Allergies Allergy/AdvReac Type Severity Reaction Status Date / Time No Known Allergies Allergy Unverified 10/27/21 11:58 [No Known Allergies*] Active Medications: Current Medications Lactated Ringer's (Lr) 1,000 mls @ 50 mls/hr IVCONT .Q20H CARMEN Lactated Ringer's (Lr) 1,000 mls @ 50 mls/hr IVCONT .Q20H CARMEN Last Admin: 01/11/22 13:54 Dose: 50 mls/hr Home Medications Medication Instructions Recorded Confirmed Last Taken Type medroxyprogesterone 150 mg/mL 150 mg IM [id number] 10/06/20 Unknown History intramuscular syringe omeprazole 20 mg capsule,delayed 20 mg PO DAILY 10/06/20 Unknown History release Exam Exam Date and Time: January 11, 2022 1355 Height,Weight and Vital Signs: Height 5 ft 3 in Weight 47.627 kg Airway Mallampati Class: III TM Dist: >3cm Neck ROM: Full Loose/Missing/Broken Teeth: Yes Heart: S1,S2 Lungs: b/l breath sounds Assessment and Plan Assessment Anesthesia Assessment: Anesthesia Plan Discussed and Chart Reviewed Final Anesthetic Review Family History of Problems with Anesthesia: No History of Problems with Anesthesia: No NPO: Yes ASA Class: II Final Preanesthetic Review: Meds/Allgs Chart Reviewed, Consent Obtained/Reviewed and Anes Risks/Benef Reviewed Patient Risk: Intermediate Procedure Risk: Intermediate Anesthetic Plan Anesthetic Plan: MAC: Disposition: Standard PACU
[2022-01-11 13:58] VITALS: BP 115/69; PULSE 72; RESP 16; TEMP 36.8; O2SAT 100
[2022-01-11 14:06] LABS: UPreg QC Valid YES; Urine Pregnancy NEGATIVE (NEGATIVE)
[2022-01-11 14:08] LABS: Appearance Urine Hazy; Color Urine Yellow; Glucose Urine UA Negative (Negative); Leukocyte Esterase Urine Small (1+) (Negative); Nitrite Urine Negative (Negative); PH 5.5 (5.0-8.0); Specific Gravity - Urine >= 1.030 (1.005-1.025); Urine Blood Small (1+) (Negative); Urine Ketones Trace mg/dL (Negative); Urine Protein Negative (Neg-Trace)
--- NOTE | 2022-01-11 14:40 | MHC.SHP ---
Pre-Procedural Eval Section A Date of Service: 01/11/22 Section B Chief Complaint: Dysuria,Upper abdominal pain, Relevant Family History (Specify if Yes): No Relevant Social History: Other (specify) (e cigarettes ) Present Medications: see Short Stay Collaborative assessment Medical History: Significant History (anemia) History of Previous Operations: No relevant previous surgery Allergies: Allergies Allergy/AdvReac Type Severity Reaction Status Date / Time No Known Allergies Allergy Unverified 10/27/21 11:58 [No Known Allergies*] Review of Systems Sugical H&P ROS: Negative: Constitution, Cardiovascular, Respiratory, Neurological, Psychiatric, Hem-Onc, Allergic/Immunologic, Gastrointestinal, Genitourinary, Musculoskeletal, Integumentary, Endocrine and Eyes/Ears/Nose/Throat Exam Surgical H&P Exam: Normal: HEENT, Normal: Heart, Normal: Lungs, Normal: Extremities, Normal: Abdomen, Normal: Skin and Normal: Neurological Plan Diagnosis/Plan: Unchanged I have reviewed the history and physical and performed a pertinent physical examination on my patient. No changes have occurred unless specified.
--- NOTE | 2022-01-11 14:42 | W.PM.OPN ---
Operative Note Operative Note Date of Service: 01/11/22 Narrative: Procedure Description: EGD Indication: [] Anesthesia: MAC FLEXIBLE TRANSORAL UPPER GASTROINTESTINAL ENDOSCOPY UPPER ENDOSCOPY Consent: Indications for the procedure and potential complications of bleeding, perforation, reaction to medications and missed diagnosis were discussed with the patient and informed consent was obtained. Instrument: Olympus GIF H 190 J mid size upper endoscope Monitoring: Vital signs and clinical assessment, continuous EKG monitoring, Pulse oximetry, Carbon Dioxide monitoring and blood pressure monitoring were done throughout the procedure. Procedure: The patient was placed in the left lateral decubitis position and pre-procedure medications were administered and a bite block was placed. The endoscope was inserted into the mouth and advanced under direct vision to the third part of duodenum. A careful inspection was made as the upper endoscope was withdrawn including a retroflexed examination of the proximal stomach; Findings and interventions are described below. Findings: Larynx:mild erythema Esophagus: GE junction at 40 cm, diaphragm hiatus at 40 cm, erythema at lower esophagus, bx taken from proximal and distal esophagus as well as GEJ. . Stomach: Patchy gastric erythema. Biopsies were obtained. Grade 2 flap valve on retroflexed examination of the cardia. The anterior aspect of the antral area seemed compressed. Duodenum: Normal bulb and descending duodenum, bx taken Intervention: Biopsies as noted above Impression/Findings: extrinsic stomach compression mild laryngitis PLAN: duplex to r/o SMA or celiac axis compression await pathology incl for mast cell staining
[2022-01-11 14:43] LABS: RBC Urine 0-2 /HPF (0-2); UACC Culture Trigger YES; WBC Urine 21-50 /HPF (0-5)
[2022-01-11 14:44] LABS: Bacteria Urine None Seen (None Seen); Renal Epithelial Cells Urine Present; Squamous Epithelial Cell Urine 0-2 /HPF (0-2)
[2022-01-11 15:03] LABS: Hyaline Casts Urine 0-2 /LPF (0-2)
[2022-01-11 15:08] VITALS: BP 101/60; PULSE 92; RESP 16; TEMP 36.8; O2SAT 93
[2022-01-11 15:23] VITALS: BP 118/82; PULSE 77; RESP 16; O2SAT 100
[2022-01-11 15:38] VITALS: BP 116/70; PULSE 78; RESP 16; TEMP 36.8; O2SAT 100
[2022-01-11 15:43] LABS: CT PCR NOT DETECTED (Not Detect.); NG PCR NOT DETECTED (Not Detect.)
== END 2022-01-11 15:50 | disposition home or self-care (01) ==
PROVIDERS: Anesthesiology; Visit Provider Internal Medicine Gastroenterology
PROC: 0DJ08ZZ Inspection of Upper Intestinal Tract, Via Natural or Artificial Opening Endoscopic (ICD-10-PCS; CPT 43235; principal; 2022-01-11 14:10)
DX: R10.10 Upper abdominal pain, unspecified (principal); R30.0 Dysuria; K29.50 Unspecified chronic gastritis without bleeding; K31.89 Other diseases of stomach and duodenum; K44.9 Diaphragmatic hernia without obstruction or gangrene; J04.0 Acute laryngitis; D64.9 Anemia, unspecified; Z79.899 Other long term (current) drug therapy
CPT/HCPCS: 43239; 81001; 81003; 81025; 87086; 87491; 87591; 88305; 88341; 88342; J2250

== ENCOUNTER 2022-01-26 14:34 | Outpatient (REF) | payer OTHER, SELFPAY ==
--- NOTE | ~2022-01-26 | US_ITS ---
EXAMINATION: US superior mesenteric artery CLINICAL INFORMATION: Upper abdominal pain COMPARISON: None TECHNIQUE: Color and spectral Doppler evaluation of the abdominal aorta and mesenteric arteries. FINDINGS: ABDOMINAL AORTA: The visualized proximal segment is normal in caliber. Patent color flow with normal arterial waveforms and velocities. CELIAC ARTERY: Elevated velocity with spectral broadening is seen at the ostium of the celiac artery. Peak systolic velocity measures 551 cm/s on inspiration and 514 cm/s on expiration. Peak systolic velocity measures 383 cm/s in the erect position on inspiration and 408 cm/s on expiration. There appears to be poststenotic dilation of the celiac artery measuring 1.0 cm SUPERIOR MESENTERIC ARTERY: Normal upstroke and diastolic flow. Peak systolic velocity in the proximal segment measures 194 cm/s. Peak systolic velocity in the mid segment measures 146 cm/s. Peak systolic velocity distal segment measures 181 cm/s. INFERIOR MESENTERIC ARTERY: Normal upstroke and diastolic flow. Peak systolic velocity measures 137 cm/s. SPLENIC ARTERY: Normal upstroke and diastolic flow. Peak systolic velocity measures 111 cm/s. HEPATIC ARTERY: Normal upstroke and diastolic flow. Peak systolic velocity measures 320 cm/s. INFERIOR VENA CAVA: Visualized portions are normal. US/US SMA IMPRESSION: Markedly elevated velocity of the celiac artery at the ostium on both inspiration and expiration consistent with severe stenosis. Poststenotic dilatation is seen. Elevated velocity is also noted in the hepatic artery. Superior mesenteric artery and inferior mesenteric artery are patent with normal velocities
== END 2022-01-26 14:35 | disposition home or self-care (01) ==
LOC: HO.US 14:34
PROVIDERS: Visit Provider Internal Medicine Gastroenterology
DX: R10.10 Upper abdominal pain, unspecified (principal)
CPT/HCPCS: 93976

== ENCOUNTER 2022-02-19 11:05 | Outpatient (REF) | payer OTHER, SELFPAY ==
--- NOTE | ~2022-02-19 | CT_ITS ---
STUDY PERFORMED: CTA ABDOMEN WITHOUT AND WITH CONTRAST HISTORY: Abdominal pain DESCRIPTION: Routine abdomen and pelvis CTA protocol with contrast was performed. 75 mL of Omnipaque 350 was administered. 3D POSTPROCESSING: Multiple 3-D angiographic images were processed from the initial data set by the [facility] under concurrent physician supervision. DOSE LOWERING TECHNIQUES: This CT examination was performed using dose optimization techniques as appropriate, variously including the following: - Automated exposure control - Adjustment of mA and/or kV according to patient size (this includes techniques or standardized protocols for targeted exams where dose is matched to indication/reason for exam; i.e. extremities or head) - Use of iterative reconstruction technique DLP: 168 mGycm. COMPARISON: None FINDINGS: VASCULAR: ABDOMINAL AORTA: Normal caliber and patent. RIGHT LOWER EXTREMITY: The visualized iliac arteries are patent. LEFT LOWER EXTREMITY: The visualized iliac arteries are patent. CELIOMESENTERIC ARTERIES: There is a severe stenosis at the ostium of the celiac artery. This does not have a typical appearance of extrinsic compression from a median arcuate ligament syndrome. Further evaluation with a dynamic angiogram may be useful. The superior mesenteric artery and inferior mesenteric artery are widely patent and normal in caliber. No evidence of aneurysms or vessel irregularity throughout the mesenteric vessels otherwise RENAL ARTERIES: There are single bilateral renal arteries which are widely patent and normal caliber. No evidence of aneurysm or vessel irregularity. NONVASCULAR: Lung Bases: The visualized lung bases are unremarkable. Liver, Gallbladder and Biliary Tree: The liver is normal in size, shape, and attenuation. No focal hepatic lesion or biliary ductal dilatation is present. The gallbladder is unremarkable with no evidence of radiopaque gallstones, gallbladder wall thickening, or obvious pericholecystic inflammatory changes. Pancreas: Unremarkable. Spleen: Unremarkable. Adrenal Glands: Unremarkable. Kidneys and Ureters: The kidneys are normal in size, shape, and attenuation. No hydronephrosis, hydroureter, or calculi seen. No perinephric stranding. Bladder: Unremarkable. Gastrointestinal Tract: The visualized small and large bowel are unremarkable. Abdominal Wall: No significant hernia is appreciated. Lymph Nodes: Normal. Osseous Structures: Unremarkable. 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 This does not have the typical extrinsic compression appearance associated with median arcuate ligament syndrome. Stenosis appears more circumferential. Further evaluation with a dynamic angiogram may be useful for further evaluation and possible stenting if indicated. Visualized bowel loops and solid abdominal organs are normal
[2022-02-19 12:32] LABS: Appearance Urine Clear; Color Urine Yellow; Glucose Urine UA Negative (Negative); Leukocyte Esterase Urine Trace (Negative); Nitrite Urine Negative (Negative); Specific Gravity - Urine >= 1.030 (1.005-1.025); UMIC TRIGGER UACC YES; Urine Blood Small (1+) (Negative); Urine Ketones Trace mg/dL (Negative); Urine Protein Trace mg/dL (Neg-Trace)
[2022-02-19 12:36] LABS: Blood Urea Nitrogen 11 mg/dL (9-16); Estimated Glomerular Filt Rate > 60
[2022-02-19 12:40] LABS: Bacteria Urine None Seen (None Seen); Hyaline Casts Urine 0-2 /LPF (0-2); UACC Culture Trigger YES
[2022-02-19] MEDS: iohexoL 350 MG/ML 75 ML INFUS..BTL IV (16:14)
== END 2022-02-19 11:06 | disposition home or self-care (01) ==
LOC: HO.CT 11:05
PROVIDERS: Visit Provider Internal Medicine Gastroenterology
DX: R10.10 Upper abdominal pain, unspecified (principal); R30.0 Dysuria; D64.9 Anemia, unspecified
CPT/HCPCS: 36415; 74175; 81001; 81003; 82565; 84520; 87086; Q9967

== ENCOUNTER 2022-03-15 13:12 | Day surgery (SDC) | payer OTHER, SELFPAY ==
[2022-03-15 14:14] VITALS: BMI 18.4
[2022-03-15 14:17] LABS: UPreg QC Valid YES; Urine Pregnancy NEGATIVE (NEGATIVE)
[2022-03-15 14:29] VITALS: BP 116/67; PULSE 72; RESP 16; TEMP 37.4; O2SAT 100
[2022-03-15] MEDS: Lactated Ringers 1,000 ML 100 ML IVCONT (14:43)
--- NOTE | 2022-03-15 14:52 | MHC.SHP ---
Pre-Procedural Eval Section A Date of Service: 03/15/22 Section B Chief Complaint: Dysuria,upper abdominal pain, Relevant Family History (Specify if Yes): No Relevant Social History: None Present Medications: see Short Stay Collaborative assessment Medical History: Significant History (anemia) History of Previous Operations: No relevant previous surgery Allergies: Allergies Allergy/AdvReac Type Severity Reaction Status Date / Time No Known Allergies Allergy Unverified 10/27/21 11:58 [No Known Allergies*] Review of Systems Sugical H&P ROS: Negative: Constitution, Cardiovascular, Respiratory, Neurological, Psychiatric, Hem-Onc, Allergic/Immunologic, Gastrointestinal, Genitourinary, Musculoskeletal, Integumentary, Endocrine and Eyes/Ears/Nose/Throat Exam Surgical H&P Exam: Normal: HEENT, Normal: Heart, Normal: Lungs, Normal: Extremities, Normal: Abdomen, Normal: Skin and Normal: Neurological Plan Diagnosis/Plan: Unchanged I have reviewed the history and physical and performed a pertinent physical examination on my patient. No changes have occurred unless specified.
--- NOTE | 2022-03-15 14:53 | W.PM.OPN ---
Operative Note Operative Note Date of Service: 03/15/22 Narrative: Procedure Description: EGD Indication: abdominal pain, push enteroscopy Anesthesia: MAC FLEXIBLE TRANSORAL UPPER GASTROINTESTINAL ENDOSCOPY UPPER ENDOSCOPY Consent: Indications for the procedure and potential complications of bleeding, perforation, reaction to medications and missed diagnosis were discussed with the patient and informed consent was obtained. Instrument: Olympus GIF H 190 J mid size upper endoscope Monitoring: Vital signs and clinical assessment, continuous EKG monitoring, Pulse oximetry, Carbon Dioxide monitoring and blood pressure monitoring were done throughout the procedure. Procedure: The patient was placed in the left lateral decubitis position and pre-procedure medications were administered and a bite block was placed. The endoscope was inserted into the mouth and advanced under direct vision to the third part of duodenum. A careful inspection was made as the upper endoscope was withdrawn including a retroflexed examination of the proximal stomach; Findings and interventions are described below. Findings: Larynx:normal Esophagus: GE junction at 38 cm, diaphragm hiatus at 38 cm, esophagitis at GEJ, bx taken Stomach: Patchy gastric erythema. Biopsies were obtained. Grade 2 flap valve on retroflexed examination of the cardia. Duodenum: Normal bulb and descending duodenum, bx taken Jejunum: normal, bx taken There was minimal movement of small bowel and stomach. Intervention: Biopsies as noted above Impression/Findings: dysmotility esophagitis PLAN: await bx results norm referral to vascular for celiac art stenosis seen on CT may benefit from pro motility agent like motegrity, or reglan
--- NOTE | 2022-03-15 14:54 | HO.ANESPROP2 ---
HPI - Anesthesia Eval Consult details Narrative: 21 F for EGD Anemia . h/o right sided chest pain . As per PCP muskuloskeletal in nature . Currently denies any chest pain . Functional status greater than 4 mets PMFSH Active Problems Active Problems: All Active Problems (Updated 10/27/21 @ 12:26 by Jovan Moran MD) Anemia (Acute) Upper abdominal pain (Acute) Dysuria (Acute) Ankle sprain (Acute) Past Medical History Medical History (Updated 03/15/22 @ 14:58 by Jovan Moran MD) Anemia Functional capacity: independent ambulation Family History Family History (Updated 10/27/21 @ 12:00 by RUSSEL Amador) Maternal Grandmother Diabetes Maternal Grandfather Throat cancer Maternal Aunt Breast cancer Family history of problems with anesthesia: No Surgical History History of Problems with Anesthesia: No Social History Social History Patient Tobacco Use Status: Never used Tobacco Meds Allergies Allergy/AdvReac Type Severity Reaction Status Date / Time No Known Allergies Allergy Unverified 10/27/21 11:58 [No Known Allergies*] Active Medications: Current Medications Lactated Ringer's (Lr) 1,000 mls @ 100 mls/hr IVCONT .Q10H CARMEN Last Admin: 03/15/22 14:43 Dose: 100 mls/hr Home Medications Medication Instructions Recorded Confirmed Last Taken Type medroxyprogesterone 150 mg/mL 150 mg IM [id number] 10/06/20 Unknown History intramuscular syringe omeprazole 20 mg capsule,delayed 20 mg PO DAILY 10/06/20 Unknown History release Exam Exam Date and Time: March 15, 2022 1454 Height,Weight and Vital Signs: Height 5 ft 3 in Weight 47.174 kg Last Vital Signs Temp 99.4 F 03/15/22 14:29 Pulse 72 03/15/22 14:29 Resp 16 03/15/22 14:29 BP 116/67 03/15/22 14:29 Pulse Ox 100 03/15/22 14:29 O2 Del Method 03/15/22 14:29 Pertinent Lab Results Pertinent Lab Results: Laboratory Tests 03/15/22 14:08 Urine Test NEGATIVE Airway Mallampati Class: II TM Dist: >3cm Neck ROM: Full Loose/Missing/Broken Teeth: Yes Heart: S1,S2 Lungs: b/l breath sounds Assessment and Plan Assessment Anesthesia Assessment: Anesthesia Plan Discussed and Chart Reviewed Final Anesthetic Review Family History of Problems with Anesthesia: No History of Problems with Anesthesia: No NPO: Yes ASA Class: II Final Preanesthetic Review: Meds/Allgs Chart Reviewed, Consent Obtained/Reviewed and Anes Risks/Benef Reviewed Patient Risk: Intermediate Procedure Risk: Intermediate Anesthetic Plan Anesthetic Plan: MAC: Disposition: Standard PACU
[2022-03-15 15:38] VITALS: BP 101/48; PULSE 94; RESP 16; TEMP 36.7; O2SAT 98
[2022-03-15 15:53] VITALS: BP 121/79; PULSE 88; RESP 18; TEMP 36.7; O2SAT 100
== END 2022-03-15 16:16 | disposition home or self-care (01) ==
PROVIDERS: Nurse Practitioner; Visit Provider Internal Medicine Gastroenterology
PROC: 0DJ08ZZ Inspection of Upper Intestinal Tract, Via Natural or Artificial Opening Endoscopic (ICD-10-PCS; CPT 43235; principal; 2022-03-15 14:50)
DX: R10.10 Upper abdominal pain, unspecified (principal); R30.0 Dysuria; K20.80 Other esophagitis without bleeding; K22.4 Dyskinesia of esophagus; D64.9 Anemia, unspecified; K44.9 Diaphragmatic hernia without obstruction or gangrene; Z79.899 Other long term (current) drug therapy
CPT/HCPCS: 44360; 81025; 88305; 88313; 88341; 88342; J2250; J2405

== ENCOUNTER 2022-06-20 06:36 | Outpatient (REF) | payer OTHER, SELFPAY ==
[2022-06-20 06:48] LABS: MANUAL DIFF FLAG NO
[2022-06-20 07:27] LABS: Basophils Percent Auto 0.6 % (0-2); Eosinophils Absolute Auto 0.1 X10*3/uL (0.0-0.4); Eosinophils Percent Auto 1.2 % (0-4); Hematocrit 38.3 % (37.0-47.0); Hemoglobin 12.9 g/dl (12.0-16.0); Imm Gran Abs Auto 0.01 X10*3/uL (0.00-0.03); Imm Gran Pct Auto 0.2 % (0.0-0.4); Lymphocytes Absolute Auto 2.7 X10*3/uL (1.2-4.9); Lymphocytes Percent Auto 41.7 % (20-40); Mean Corpuscular HGB Conc 33.7 g/dl (31.0-35.0); Mean Corpuscular Hemoglobin 32.3 pg (27.0-33.0); Mean Corpuscular Volume 95.8 fL (80.0-98.0); Mean Platelet Volume 12.8 fL (9.4-12.3); Monocytes Absolute Auto 0.5 X10*3/uL (0.1-1.2); Monocytes Percent Auto 7.1 % (2-11); Neutrophils Absolute Auto 3.2 x10*3/uL (2.0-8.3); Neutrophils Percent Auto 49.2 % (45-73); Platelet Count 190 X10*3/uL (160-400); Red Cell Distribution Width 11.7 % (11.0-16.0); White Blood Count 6.5 X10*3/uL (4.8-10.8)
[2022-06-20 07:28] LABS: INTERNATIONAL NORM RATIO 1.2 (0.9-1.1); Prothrombin Time 13.8 SEC (10.0-13.1)
[2022-06-20 07:49] LABS: Anion Gap 12 (12-20); Blood Urea Nitrogen 11 mg/dL (9-16); Calcium 9.4 mg/dL (8.4-10.2); Carbon Dioxide 23 mmol/L (22-29); Chloride 112 mmol/L (96-108); Estimated Glomerular Filt Rate > 60; Glucose Random 86 mg/dL (60-115); Sodium 143 mmol/L (135-145)
== END 2022-06-20 06:37 | disposition home or self-care (01) ==
LOC: HO.LAB 06:36
PROVIDERS: Visit Provider Nurse Practitioner
DX: I77.4 Celiac artery compression syndrome (principal)
CPT/HCPCS: 36415; 80048; 85025; 85610

== ENCOUNTER 2022-09-04 16:16 | Outpatient (REF) | payer OTHER, SELFPAY ==
[2022-09-05 10:26] LABS: Appearance Urine Clear; Color Urine Yellow; Glucose Urine UA Negative (Negative); Leukocyte Esterase Urine Moderate (2+) (Negative); Nitrite Urine Negative (Negative); Specific Gravity - Urine 1.015 (1.005-1.025); UMIC TRIGGER UACC YES; Urine Blood Trace (Negative); Urine Ketones Negative (Negative); Urine Protein Negative (Neg-Trace)
[2022-09-05 10:32] LABS: Bacteria Urine None Seen (None Seen); Hyaline Casts Urine 0-2 /LPF (0-2); RBC Urine 0-2 /HPF (0-2); Squamous Epithelial Cell Urine 0-2 /HPF (0-2); WBC Urine 0-5 /HPF (0-5)
[2022-09-05 11:15] LABS: Influenza A PCR NEGATIVE (Negative); Influenza B PCR NEGATIVE (Negative); Resp Syncy Virus RNA Qual PCR NEGATIVE (Negative); SARS COV2 PCR INHOUSE NEGATIVE (Negative)
== END 2022-09-04 16:17 | disposition home or self-care (01) ==
LOC: HO.LAB 16:16
PROVIDERS: Visit Provider Nurse Practitioner Family
DX: Z20.822 Contact with and (suspected) exposure to COVID-19 (principal); R09.89 Other specified symptoms and signs involving the circulatory and respiratory systems
CPT/HCPCS: 0241U; 81001

== ENCOUNTER 2023-02-19 15:04 | Emergency (ER) | payer OTHER, SELFPAY ==
--- NOTE | 2023-02-19 15:06 | ECG_ITS ---
Test Reason : CP Blood Pressure : / mmHG Vent. Rate : 081 BPM Atrial Rate : 081 BPM P-R Int : 158 ms QRS Dur : 072 ms QT Int : 344 ms P-R-T Axes : 055 080 049 degrees QTc Int : 399 ms Normal sinus rhythm with sinus arrhythmia Normal ECG No previous ECGs available Referred By: Sandi Steele Electronically Signed By:LEXA CHAVARRIA
--- NOTE | 2023-02-19 15:18 | ED.GENADULT ---
HPI - General Adult General Chief complaint: Chest Pain Stated complaint: Chest pain sent by urgent care Related Data Previous Rx's ?Medication ?Instructions ?Recorded nitrofurantoin macrocrystal 100 mg 100 mg PO Q12H 5 days #10 caps 09/04/22 capsule (Macrodantin) Allergies Allergy/AdvReac Type Severity Reaction Status Date / Time No Known Allergies Allergy Verified 02/19/23 15:19 [No Known Allergies*] PMFSH Past Medical History Medical History Anemia Family History Family History Maternal Grandmother Diabetes Maternal Grandfather Throat cancer Maternal Aunt Breast cancer Social History Social History Patient Tobacco Use Status: Never used Tobacco Advance Directives: No Advance Directives Information Provided: No Physical Exam ED Vital Signs: BMI result Body Mass Index 18.9 Course Course Course Narrative: This is an RME: Additional HPI, ROS, PE not included below will be deferred to primary provider. 22 y o female presenting for evaluation of chest pain, sent in by urgent care, urgent care did a COVID test which was negative. Chest pain x2 weeks with no radiation with associated nausea. States this has happened before and previously was a sprain of the chest wall. States 11/26 pain Plan -- labs, ekg Medical Decision Making Lab Data 02/19/23 15:30 02/19/23 15:30 Labs: Lab Results 02/19/23 Range/Units 15:30 WBC 8.6 (4.8-10.8) X10*3/uL RBC 3.92 L (4.20-5.50) X10*6/uL Hgb 12.6 (12.0-16.0) g/dl Hct 36.2 L (37.0-47.0) % MCV 92.3 (80.0-98.0) fL MCH 32.1 (27.0-33.0) pg MCHC 34.8 (31.0-35.0) g/dl RDW 11.6 (11.0-16.0) % Plt Count 186 (160-400) X10*3/uL MPV 11.9 (9.4-12.3) fL Immature Gran % (Auto) 0.3 (0.0-0.4) % Neut % (Auto) 75.2 H (45-73) % Lymph % (Auto) 16.2 L (20-40) % [place] % (Auto) 7.1 (2-11) % Eos % (Auto) 0.7 (0-4) % Baso % (Auto) 0.5 (0-2) % Lymph # (Auto) 1.4 (1.2-4.9) X10*3/uL [place] # (Auto) 0.6 (0.1-1.2) X10*3/uL Eos # (Auto) 0.1 (0.0-0.4) X10*3/uL Baso # (Auto) 0.0 (0.0-0.2) X10*3/uL Abs Immat Gran (auto) 0.03 (0.00-0.03) X10*3/uL Absolute Neuts (auto) 6.5 (2.0-8.3) x10*3/uL Absolute Nucleated RBC 0.000 (0.0-0.012) X10*3/uL Nucleated RBC % (auto) 0.0 (0.0-0.2) /100WBC Sodium 140 (135-145) mmol/L Potassium 3.7 (3.3-5.1) mmol/L Chloride 107 (96-108) mmol/L Carbon Dioxide 24 (22-29) mmol/L Anion Gap 13 (12-20) BUN 7 L (9-16) mg/dL Creatinine 0.71 (0.5-1.4) mg/dL Estim Creat Clear Calc 94.1 Estimated GFR > 60 Random Glucose 91 (60-115) mg/dL Calcium 9.6 (8.4-10.2) mg/dL Magnesium 2.1 (1.6-2.6) mg/dL Total Bilirubin 0.7 (0.0-1.0) mg/dL AST 19 (5-31) U/L ALT 8 (0-31) U/L Alkaline Phosphatase 72 (39-117) U/L Troponin I High Sens < 2.7 (<3.5-17.0) ng/L Total Protein 7.5 (6.5-8.0) g/dL Albumin 4.4 (3.5-5.0) g/dL Beta HCG, Quant < 2 mIU/mL Discharge Plan Discharge Clinical Impression: Eloped from emergency department Patient Disposition: Left W/O Completing Treatment Prescriptions: No Action nitrofurantoin macrocrystal [Macrodantin] 100 mg capsule 100 mg PO Q12H 5 Days Qty: 10 0RF Rx Instructions: must administer with a meal/food Discharge Date/Time: 02/19/23 19:15
[2023-02-19 15:19] VITALS: BP 127/72; PULSE 94; RESP 16; TEMP 36.8; O2SAT 100; BMI 18.9
[2023-02-19 15:35] LABS: MANUAL DIFF FLAG NO
[2023-02-19 15:42] LABS: Basophils Percent Auto 0.5 % (0-2); Eosinophils Absolute Auto 0.1 X10*3/uL (0.0-0.4); Eosinophils Percent Auto 0.7 % (0-4); Hematocrit 36.2 % (37.0-47.0); Hemoglobin 12.6 g/dl (12.0-16.0); Imm Gran Abs Auto 0.03 X10*3/uL (0.00-0.03); Imm Gran Pct Auto 0.3 % (0.0-0.4); Lymphocytes Absolute Auto 1.4 X10*3/uL (1.2-4.9); Lymphocytes Percent Auto 16.2 % (20-40); Mean Corpuscular HGB Conc 34.8 g/dl (31.0-35.0); Mean Corpuscular Hemoglobin 32.1 pg (27.0-33.0); Mean Corpuscular Volume 92.3 fL (80.0-98.0); Mean Platelet Volume 11.9 fL (9.4-12.3); Monocytes Absolute Auto 0.6 X10*3/uL (0.1-1.2); Monocytes Percent Auto 7.1 % (2-11); Neutrophils Absolute Auto 6.5 x10*3/uL (2.0-8.3); Neutrophils Percent Auto 75.2 % (45-73); Platelet Count 186 X10*3/uL (160-400); Red Blood Count 3.92 X10*6/uL (4.20-5.50); Red Cell Distribution Width 11.6 % (11.0-16.0); White Blood Count 8.6 X10*3/uL (4.8-10.8)
[2023-02-19 15:56] LABS: Alanine Aminotransferase 8 U/L (0-31); Albumin Level 4.4 g/dL (3.5-5.0); Alkaline Phosphatase 72 U/L (39-117); Anion Gap 13 (12-20); Aspartate Amino Transferase 19 U/L (5-31); Bilirubin Total 0.7 mg/dL (0.0-1.0); Blood Urea Nitrogen 7 mg/dL (9-16); Calcium 9.6 mg/dL (8.4-10.2); Carbon Dioxide 24 mmol/L (22-29); Chloride 107 mmol/L (96-108); Creatinine Clr Calc Pharmacy 94.1; Estimated Glomerular Filt Rate > 60; Glucose Random 91 mg/dL (60-115); Magnesium 2.1 mg/dL (1.6-2.6); Potassium 3.7 mmol/L (3.3-5.1); Sodium 140 mmol/L (135-145); Total Protein 7.5 g/dL (6.5-8.0)
[2023-02-19 16:04] LABS: Troponin-I High Sensitivity < 2.7 ng/L (<3.5-17.0)
[2023-02-19 16:29] LABS: HCG Quantitative < 2 mIU/mL
== END 2023-02-19 19:15 | disposition left against medical advice (07) ==
PROVIDERS: Physician Assistant; Student in an Organized Health Care Education/Training Program; Emergency Provider Emergency Medicine
DX: R07.9 Chest pain, unspecified (principal)
CPT/HCPCS: 36415; 80053; 83735; 84484; 84702; 85025; 93005; 99283

== ENCOUNTER 2025-04-23 14:09 | Emergency (ER) | payer OTHER, SELFPAY ==
--- NOTE | ~2025-04-23 | CT_ITS ---
CLINICAL HISTORY: head strike, pain --- Additional Notes or Special Instructions CT HEAD WITHOUT CONTRAST Comparison: None provided Findings: No acute intracranial hemorrhage, extra-axial fluid collection, hydrocephalus or midline shift. No significant atrophy-like change. No significant white matter disease. Nonspecific opacification of a right posterior ethmoid air cell. No fluid identified in the frontal, maxillary or sphenoid sinuses. No mastoid fluid. Visualized orbits: No acute abnormalities. There is no acute fracture. IMPRESSION: 1. No acute intracranial hemorrhage. This document has been electronically signed by: Jessica Delaney DO on 04/23/2025 18:12:32
--- NOTE | ~2025-04-23 | XR_ITS ---
EXAMINATION: XR CHEST CLINICAL INFORMATION: SOB COMPARISON: None available. TECHNIQUE: 2 views of the chest were obtained. FINDINGS: The cardiac, hilar, and mediastinal contours are normal. The lungs are clear bilaterally. There is no pneumothorax or pleural effusion. There is no focal osseous or soft tissue abnormality. There is a mild S-shaped scoliosis of the thoracic spine. XR/XR chest 2V IMPRESSION: No active pulmonary disease. Electronically signed by: Mann Encinas MD 04/23/2025 02:37 PM [facility]
[2025-04-23 14:17] VITALS: BP 110/54; PULSE 71; RESP 15; TEMP 36.3; O2SAT 98; BMI 16.5
--- NOTE | 2025-04-23 14:20 | ED_ITS ---
HPI - General Adult General Chief complaint: Head Injury Stated complaint: Injury Time Seen by Provider: 04/23/25 18:17 Source: patient Mode of arrival: ambulatory Limitations: no limitations History of Present Illness ED Provider: Ade Fuentes PA-C HPI narrative: Patient is a 24 year old assigned female at with a history of anemia presenting to the emergency department today with multiple head strikes and intermittent headache, lightheadedness, and shortness of breath. Patient states that over the last 2 weeks she has had 3 separate incidents where she accidentally hit her head. Patient states that she has not had any loss of consciousness with the incidents. Patient states that ever since she has been having intermittent lightheadedness / dizziness / and shortness of breath. Patient denies any other complaints at this time. Related Data Previous Rx's ?Medication ?Instructions ?Recorded nitrofurantoin macrocrystal 100 mg 100 mg PO Q12H 5 da ys #10 caps 09/04/22 capsule (Macrodantin) Allergies Allergy/AdvReac Type Severity Reaction Status Date / Time No Known Allergies (No Known Allergy Verified 04/23/25 14:18 Allergies*) Review of Systems 2 Constitutional: Constitutional: Reports as per HPI Eyes: Eyes: Reports as per HPI ENT: Reports as per HPI Cardiovascular: Cardiovascular: Reports as per HPI Respiratory: Respiratory: Reports as per HPI Gastrointestinal: Gastrointestinal: Reports as per HPI Genitourinary: Genitourinary: Reports as per HPI Musculoskeletal: Musculoskeletal: Reports as per HPI Integumentary/Breasts: Skin/Breast: Reports as per HPI Neurologic: Reports as per HPI Psychiatric: Psychiatric: Reports as per HPI Endocrine: Endocrine: Reports as per HPI Hematologic/Lymphatic: Hematologic/Lymphatic: Reports as per HPI Allergic/Immunologic: Allergic/Immunologic: Reports as per HPI PMFSH Past Medical History Attestation statement: The following information was validated with the patient. Source: old records reviewed and nursing notes reviewed Medical History Anemia Family History Family History Maternal Grandmother Diabetes Maternal Grandfather Throat cancer Maternal Aunt Breast cancer Social History Social History Patient Tobacco Use Status: Never used Tobacco Advance Directives: No Advance Directives Information Provided: No Do you have a plan to hurt others: No Plan Physical Exam ED Vital Signs: Vital Signs - 24 hr 04/23/25 14:17 04/23/25 17:34 04/23/25 18:21 Temperature 97.3 F 97.1 F 97.1 F Pulse Rate 71 67 67 Respiratory Rate 15 18 18 Blood Pressure 110/54 L 115/59 L 115/59 L Pulse Oximetry 98 98 98 Oxygen Delivery Method Room Air Room Air Room Air BMI result Body Mass Index 16.5 Const General: cooperative, no acute distress, alert and awake Nutritional Appearance: well nourished Orientation/consciousness: patient oriented x3 HENMT Head: Yes normal to inspection and Yes atraumatic Ears: hearing grossly normal bilaterally and external ears normal General nose exam: Normal external nose present, no nasal discharge noted and no epistaxis Face and sinus: Yes normal facial exam, No abrasion and No laceration Mouth: Normal oral and palatal mucosa present, no drooling and no muffled voice Eyes General: appearance normal, both eyes and all related structures Periorbital: periorbital findings normal Eyelids: Yes eyelids normal Conjunctivae: conjunctivae normal Pupils: Equal, round and reactive pupils present EOM: EOMs intact bilaterally Neck Neck: Yes normal visual inspection and Yes full ROM Resp Effort & Inspection: normal respiratory effort and able to speak in complete sentences Neuro General: patient oriented x3, moves all extremities and CN's II-XI intact bilaterally Cranial nerves: Yes Equal, round and reactive pupils present Cognition (Neuro): normal cognition Extrem General: Yes normal to inspection, Yes full ROM and Yes capillary refill normal Psych Appearance: grossly normal Mental Status: mental status grossly normal Affect: normal affect Attitude: cooperative Thought process: Normal thought process present Thought content: Normal thought content present Insight: Good insight present (Psych) Course Course Course Narrative: Rapid medical examination performed in triage by Ade Fuentes PA-C: Patient is a 24 year old assigned female at presenting to the emergency department with headache and feeling generally unwell after hitting her head several times over the last 2 weeks. Patient states that she is also intermittently short of breath. Detailed physical exam and review of systems are deferred to the field artillery basic. EKG, labs, imaging, swabs ordered. Patient placed back in the waiting room pending room availability and results. Medical Decision Making Medical Decision Making [facility] Narrative: Patient is a 24 year old assigned female at with a history of anemia presenting to the emergency department today with multiple head strikes and intermittent headache, lightheadedness, and shortness of breath. Patient's physical exam was as noted in the physical exam portion of this note. Patient's blood work was unremarkable. Patient's EKG showed no obvious evidence of arrhythmia, ischemia, or infarct. Patient's chest x-ray and head CT showed no acute process. I explained my physical exam findings as well as all test results to the patient. I answered all questions asked by the patient. I stressed the importance of the patient taking her medication as directed (either prescribed or as the over the counter packaging recommends). I stressed the importance of the patient following up with her primary care provider. I stressed the importance of the patient returning to the emergency department immediately if her symptoms were to worsen or if she were to develop any dizziness, shortness of breath, difficulty breathing, chest pain, blurry vision, loss of vision, nausea, vomiting, abdominal pain, fever, chills, back pain, or any other complaints. Patient verbalized agreement and understanding with this treatment plan and discharge. Differential Diagnosis Differential Diagnoses: The differential diagnosis associated with the presentation includes Falls Dizziness Lightheadedness Concussion Shortness of breath Anxiety Viral illness Admission/Observation Consideration of admission/observation: Escalation of care including admission/observation considered Patient would have been admitted to the hospital had her work up had any findings where hospital admission was appropriate and her clinical presentation warranted hospital admission. Lab Data [facility] Lab Attestation statement: I reviewed the patient's lab results. My interpretation of these results are in the MDM Rationale portion of this note. 04/23/25 15:41 04/23/25 15:41 Labs: Lab Results 04/23/25 04/23/25 Range/Units 15:41 15:48 WBC 7.9 (4.8-10.8) X10*3/uL RBC 3.66 L (4.20-5.50) X10*6/uL Hgb 11.8 L (12.0-16.0) g/dl Hct 34.8 L (37.0-47.0) % MCV 95.1 (80.0-98.0) fL MCH 32.2 (27.0-33.0) pg MCHC 33.9 (31.0-35.0) g/dl RDW 11.7 (11.0-16.0) % Plt Count 164 (160-400) X10*3/uL MPV 12.2 (9.4-12.3) fL Immature Gran % (Auto) 0.3 (0.0-0.4) % Neut % (Auto) 71.0 (45-73) % Lymph % (Auto) 22.2 (20-40) % Sullivan % (Auto) 5.6 (2-11) % Eos % (Auto) 0.5 (0-4) % Baso % (Auto) 0.4 (0-2) % Lymph # (Auto) 1.8 (1.2-4.9) X10*3/uL Sullivan # (Auto) 0.4 (0.1-1.2) X10*3/uL Eos # (Auto) 0.0 (0.0-0.4) X10*3/uL Baso # (Auto) 0.0 (0.0-0.2) X10*3/uL Abs Immat Gran (auto) 0.02 (0.00-0.03) X10*3/uL Absolute Neuts (auto) 5.6 (2.0-8.3) x10*3/uL Absolute Nucleated RBC 0.000 (0.0-0.012) X10*3/uL Nucleated RBC % (auto) 0.0 (0.0-0.2) /100WBC VBG pH 7.40 (7.32-7.43) VBG pCO2 41 mmHg VBG pO2 50 mmHg VBG HCO3 25 (22-26) mmol/L VBG O2 Saturation 79.0 % VBG Base Excess 0.9 mmol/L Sodium 140 (135-145) mmol/L Potassium 3.8 (3.3-5.1) mmol/L Chloride 109 H (96-108) mmol/L Carbon Dioxide 25 (22-29) mmol/L Anion Gap 10 L (12-20) BUN 13 (9-16) mg/dL Creatinine 0.59 (0.5-1.4) mg/dL Estim Creat Clear Calc 97.1 Estimated GFR > 60 Random Glucose 89 (60-115) mg/dL Calcium 8.9 D (8.4-10.2) mg/dL Magnesium 1.9 (1.6-2.6) mg/dL Total Bilirubin 0.5 (0.0-1.0) mg/dL AST 21 (5-31) U/L ALT 11 (0-31) U/L Alkaline Phosphatase 67 (39-117) U/L Troponin I High Sens < 2.7 (<3.5-17.0) ng/L Total Protein 7.0 (6.5-8.0) g/dL Albumin 4.4 (3.5-5.0) g/dL Beta HCG, Quant < 2 mIU/mL Influenza Type A (PCR) NEGATIVE (Negative) Influenza Type B (PCR) NEGATIVE (Negative) RSV RNA Qual (PCR) NEGATIVE (Negative) SARS-CoV-2 RNA (RT-PCR) NEGATIVE (Negative) Independent Interpretation I performed an independent interpretation of an: EKG, Plain X-Ray and CT Scan Interpretation: My interpretation is in agreement with the radiologist's impression of these imaging studies as written below. Report Number: [id number]: Total DLP = 564.00 mGy-cm Reason for Exam: head strike, pain CLINICAL HISTORY: head strike, pain --- Additional Notes or Special Instructions CT HEAD WITHOUT CONTRAST Comparison: None provided Findings: No acute intracranial hemorrhage, extra-axial fluid collection, hydrocephalus or midline shift. No significant atrophy-like change. No significant white matter disease. Nonspecific opacification of a right posterior ethmoid air cell. No fluid identified in the frontal, maxillary or sphenoid sinuses. No mastoid fluid. Visualized orbits: No acute abnormalities. There is no acute fracture. IMPRESSION: 1. No acute intracranial hemorrhage. This document has been electronically signed by: Jessica Delaney DO on 04/23/2025 18:12:32 Dictated By: Jessica Delaney MD Signed By: Electronically signed by Jessica Delaney MD 04/23/25 1813 Reason for Exam: SOB EXAMINATION: XR CHEST CLINICAL INFORMATION: SOB COMPARISON: None available. TECHNIQUE: 2 views of the chest were obtained. FINDINGS: The cardiac, hilar, and mediastinal contours are normal. The lungs are clear bilaterally. There is no pneumothorax or pleural effusion. There is no focal osseous or soft tissue abnormality. There is a mild S-shaped scoliosis of the thoracic spine. XR/XR chest 2V IMPRESSION: No active pulmonary disease. Electronically signed by: Mann Encinas MD 04/23/2025 02:37 PM EST Dictated By: Mann Encinas MD Signed By: Electronically signed by Mann Encinas MD 04/23/25 1437 I independently interpreted this EKG and am in agreement with the below findings: Vent. Rate: 63 BPM Atrial Rate: 63 BPM P-R Int: 176 ms QRS Dur: 70 ms QT Int: 380 ms P-R-T Axes: 57 88 75 degrees QTcB Int: 388 ms Normal sinus rhythm When compared with ECG of 19-Feb-2023 15:24, No significant change was found DD/ 1536 Radiology Impression Discussion of test interpretation with radiology: I have reviewed the radiologist's reading. Discharge Plan Discharge Clinical Impression: Falls, Shortness of breath Headache Qualifiers: Headache type: unspecified Headache chronicity pattern: unspecified pattern I ntractability: not intractable Qualified Code(s): R51.9 - Headache, unspecified Patient Disposition: Home, Self-Care Instructions: Fall Prevention (ED), General Headache (ED), Shortness of Breath (ED) Additional Instructions: Your work up today was reassuring there is no EMERGENT cause for your symptoms. Your blood work (complete blood counts, comprehensive metabolic panel, magnesium, HCQ quant, troponin, venous blood gas) were all normal. Your COVID-19, influenza, and RSV testing was negative. Your CT of the head and chest x-ray showed no acute process with your heart, head, or lungs. Your EKG was unremarkable for any ischemia, arrhythmia, or infarct. IF you are prescribed home medications and/or you are taking over the counter medications at home - it is very important you continue to do so as prescribed / directed unless told otherwise by a healthcare provider. Follow up with your primary care provider. Do your best to stay well hydrated and rest. Return to the emergency department immediately if your symptoms worsen or if you develop any numbness, tingling, dizziness, shortness of breath, difficulty breathing, chest pain, blurry vision, loss of vision, nausea, vomiting, abdominal pain, fever, chills, back pain, or any other complaints. L If you do not have a primary care provider - call any of the below numbers to establish and follow up with a primary care provider. [facility] [place] Primary [place] ([place]) [phone] [place] [address], [address] [facility] [place] Primary Care (2 [facility]) [phone] [place] [address], [address] [facility], [address] [facility] [place] Primary Care ([address] [place]) [phone] [place] [address], [address] [facility], [address] [facility] [place] Primary Care ([place]) [phone] [place] [address] [facility] [address] [facility] [place] Family Medicine [phone] [place] [address], [address] Please see the information below about our Patient Portal. If you are not yet enrolled in the [facility] Patient Portal, you will receive an enrollment email invitation following your visit to any [facility] [place] setting. You may also self-enroll in the Patient Portal by visiting our website: [email or web address] The following information is required to access the Patient Portal: - Your [facility] [place] Medical Record Number - Your personal home email address (must match what is in your electronic medical record, Registration staff can assist with this) - Name - Date of Capabilities of the Patient Portal: - Message some providers - View upcoming appointments - Access your health summary, medical history, and visit history - View current conditions and allergies - View procedure and lab results - View your medications, including guidelines, side effects, and precautions - Complete pre-appointment questionnaires requested by your provider - Ready summary reports of your office visits and procedures To access the Patient Portal Mobile Ale[employer], follow these directions: - Search [employer] in the [employer] Store or Meican Store - Download the Ale[employer]ar - Search for [facility] - Enter your login/password Prescriptions: No Action nitrofurantoin macrocrystal [Macrodantin] 100 mg capsule 100 mg PO Q12H 5 Days Qty: 10 0RF Rx Instructions: must administer with a meal/food Stand Alone Forms: Work/School Release Interventions: ED Discharge Assessment Last Done: 04/23/25 18:21 Discharge Date/Time: 04/23/25 18:24 Print Language: Brazilian
--- NOTE | 2025-04-23 14:21 | ECG_ITS ---
Test Reason : weakness Blood Pressure : */* mmHG Vent. Rate : 63 BPM Atrial Rate : 63 BPM P-R Int : 176 ms QRS Dur : 70 ms QT Int : 380 ms P-R-T Axes : 57 88 75 degrees QTcB Int : 388 ms Normal sinus rhythm Normal ECG When compared with ECG of 19-Feb-2023 15:24, No significant change was found Referred By: Ade Fuentes Electronically Signed By: DAVIS MONTES
[2025-04-23 15:48] LABS: MANUAL DIFF FLAG NO
[2025-04-23 15:49] LABS: Hematocrit 34.8 % (37.0-47.0); Hemoglobin 11.8 g/dl (12.0-16.0); Imm Gran Abs Auto 0.02 X10*3/uL (0.00-0.03); Imm Gran Pct Auto 0.3 % (0.0-0.4); Lymphocytes Absolute Auto 1.8 X10*3/uL (1.2-4.9); Mean Corpuscular HGB Conc 33.9 g/dl (31.0-35.0); Mean Corpuscular Hemoglobin 32.2 pg (27.0-33.0); Mean Corpuscular Volume 95.1 fL (80.0-98.0); NRBC Abs Auto 0.000 X10*3/uL (0.0-0.012); NRBC Pct Auto 0.0 /100WBC (0.0-0.2); Platelet Count 164 X10*3/uL (160-400); Red Blood Count 3.66 X10*6/uL (4.20-5.50); White Blood Count 7.9 X10*3/uL (4.8-10.8)
[2025-04-23 15:50] LABS: Venous Blood Gas Refer to POC result
[2025-04-23 15:51] LABS: VBG HCO3 25 mmol/L (22-26); VBG O2 % Saturation 79.0 %
[2025-04-23 16:32] LABS: Resp Syncy Virus RNA Qual PCR NEGATIVE (Negative); SARS COV2 PCR INHOUSE NEGATIVE (Negative)
[2025-04-23 16:38] LABS: Alanine Aminotransferase 11 U/L (0-31); Albumin Level 4.4 g/dL (3.5-5.0); Alkaline Phosphatase 67 U/L (39-117); Anion Gap 10 (12-20); Aspartate Amino Transferase 21 U/L (5-31); Blood Urea Nitrogen 13 mg/dL (9-16); Calcium 8.9 mg/dL (8.4-10.2); Carbon Dioxide 25 mmol/L (22-29); Chloride 109 mmol/L (96-108); Creatinine Clr Calc Pharmacy 97.1; Estimated Glomerular Filt Rate > 60; Magnesium 1.9 mg/dL (1.6-2.6); Potassium 3.8 mmol/L (3.3-5.1); Sodium 140 mmol/L (135-145); Total Protein 7.0 g/dL (6.5-8.0)
[2025-04-23 17:14] LABS: Troponin-I High Sensitivity < 2.7 ng/L (<3.5-17.0)
[2025-04-23 17:34] VITALS: BP 115/59; PULSE 67; RESP 18; TEMP 36.2; O2SAT 98
[2025-04-23 18:21] VITALS: BP 115/59; PULSE 67; RESP 18; TEMP 36.2; O2SAT 98
--- OUTSIDE RECORDS SUMMARY | 2025-04-23 20:03 | XMS_ITS | Encounter Summary ---
Author Organization [facility] Address [address] [place] [address] Care Team Providers Care Materials Handling Coordinator Name Role Phone Domingo Clancy MD Primary Care Provider [phone] Encounter Details Date Type Department Care Team (Latest Contact Info) Description 05/02/2022 myChart Message [facility] [address] [place] [address] Girma Hunt MD [address] [place] [phone] Your Recent Visit Social History Tobacco Use Types Packs/Day Years Used Date Smoking Tobacco: Never Alcohol Use Standard Drinks/Week Comments Not Asked 0 (1 standard drink = 0.6 oz pure alcohol) Rarely drinks wine, but no hard alcohol. Comments Unknown Sex and Gender Information Value Date Recorded Sex Assigned at Female 05/02/2022 1:59 PM EST Legal Sex Female 8:58 AM EST Gender Identity Female 05/02/2022 1:59 PM EST Sexual Orientation Bisexual 05/02/2022 1: 59 PM EST documented as of this encounter Plan of Treatment Upcoming Encounters Date Type Department Care Team (Late st Contact Info) Description 05/11/2025 3:30 PM EST Office Visit [facility] [address] [place] [address] Doll Surgeon: Juan Gan Jr., MD [address] [place] [phone] documented as of this encounter Visit Diagnoses Not on filedocumented in this encounter Care Teams Materials Handling Coordinator Relationship Specialty Start Date End Date Domingo Clancy MD PCP - General 04/10/22 documented as of this encounter
--- OUTSIDE RECORDS SUMMARY | 2025-04-23 20:03 | XMS_ITS | Encounter Summary ---
Author Organization [facility] Address [address] [place] [address] Care Team Providers Care Clinical Services Manager Name Role Phone Domingo Clancy MD Primary Care Provider [phone] Reason for Visit * Reason Onset Date Comments PAC Urgent Nurse Scheduling Request 10/30/2022 Juan Arce Encounter Details Date Type Department Care Team (Late st Contact Info) Description 10/30/2022 Telephone [facility] [address] [place] [address] Telephone Intake, Staff PAC Urgent Nurse Scheduling Request (Juan Arce/) Social History Tobacco Use Types Packs/Day Years Used Date Smoking Tobacco: Never Smokeless Tobacco: Current Alcohol Use Standard Drinks/Week Comments Not Currently 0 (1 standard drink = 0.6 oz pure alcohol) Rarely drinks wine, but no hard alcohol. Comments No Sex and Gender Information Value Date Recorded Sex Assigned at Female 05/02/2022 1:59 PM EST Legal Sex Female 8:58 AM EST Gender Identity Female 05/02/2022 1:59 PM EST Sexual Orientation Bisexual 05/02/2022 1: 59 PM EST documented as of this encounter Miscellaneous Notes * Telephone Encounter - Luz Hayes - 10/30/2022 1:42 PM EDT Pt needs a post op follow up to see Juan Arce. Pt is having symptoms of nausea, little to no appetite, bloating to cause stitches to hurt. Please call [phone] documented in this encounter Plan of Treatment Upcoming Encounters Date Type Department Care Team (Late st Contact Info) Description 05/11/2025 3:30 PM EST Office Visit [facility] [address] [place] [phone] Dietetic Intern: Juan Gan Jr., MD [address] [place] [address] documented as of this encounter Visit Diagnoses Not on filedocumented in this encounter Care Teams Clinical Services Manager Relationship Specialty Start Date End Date Domingo Clancy MD PCP - General 04/10/22 documented as of this encounter
--- OUTSIDE RECORDS SUMMARY | 2025-04-23 20:03 | XMS_ITS | Encounter Summary ---
Author Organization [facility] Address [address] [place] [address] Care Team Providers Care Coat Fitter Name Role Phone Domingo Clancy MD Primary Care Provider [phone] Encounter Details Date Type Department Care Team (Latest Contact Info) Description 05/02/2022 myChart Message [facility] [address] [place] [address] Girma Hunt MD [address] [place] [phone] Your Recent Visit Social History Tobacco Use [...] Description 05/11/2025 3:30 PM EST Office Visit [facility] [address] [place] [address] Linderman Machine Operator: Juan Gan Jr., MD [address] [place] [address] documented as of this encounter Visit Diagnoses Not on filedocumented in this encounter Care Teams Coat Fitter Relationship Specialty Start Date End Date Domingo Clancy MD PCP - General 04/10/22 documented as of this encounter
--- OUTSIDE RECORDS SUMMARY | 2025-04-23 20:04 | XMS_ITS | Encounter Summary ---
Author Organization [facility] Address [address] [place] [phone] Phone Care Team Providers Care Field Tech Name Role Phone Ashley Brumfield MD Primary Care Provider Unavailabl e Reason for Visit * Reason Comments Med Refill Encounter Details Date Type Department Care Team (Late st Contact Info) Description 11/27/2018 [facility] [address] [address] Charlotte Mason MD [address] [place] [address] Muscle strain; Nausea Social History Tobacco Use Types Packs/Day Years Used Date Smoking Tobacco: Never Assessed Comments Unknown Sex and Gender Information Value Date Recorded Sex Assigned at Not on file Legal Sex Female 6:24 PM EDT Gender Identity Not on file Sexual Orientation Not on file documented as of this encounter Miscellaneous Notes * Telephone Encounter - Charlotte Mason MD - 11/27/2018 5:12 PM EDT Rx reviewed and e-prescribed to pharmacy. * Telephone Encounter - Emelina Magana MA - 11/27/2018 8:33 AM EDT Refill request for Omeprazole 20 mg Last [facility] was 04/21/18 Last refill was 10/30/18 Upcoming appt 12/01/18 Please review and send if OK documented in this encounter Plan of Treatment Not on file documented as of this encounter Visit Diagnoses Diagnosis Muscle strain Unspecified site of sprain and strain Nausea Nausea alone documented in this encounter Care Teams Field Tech Relationship Specialty Start Date End Date Ashley Brumfield MD PCP - General 11/05/19 documented as of this encounter
--- OUTSIDE RECORDS SUMMARY | 2025-04-23 20:04 | XMS_ITS | Clinical Summary ---
Author Organization [facility] Address [address] [place] [address] Care Team Providers Care Audiology Assistant Name Role Phone Domingo Clancy MD Primary Care Provider [phone] Allergies No known active allergies Medications ondansetron (ZOFRAN ODT) 4 mg disintegrating tablet Dissolve 1 tablet (4 mg total) in the mouth every 8 hours as needed for nausea or vomiting. 30 tablet 3 3 Active Active Problems Problem Noted Date Diagnosed Date Median arcuate ligament syndrome 04/16/2022 Overview (04/16/2022): Added automatically from request for surgery [id number] Assessment & Plan (10/09/2022 7:37 AM EDT): Pt has a PMHx of median arcuate ligament syndrome and is s/p robotic division of median arcuate ligament with Dr. Fernandez on 10/08/22. Pt was advanced to regular diet on POD0 and tolerated well without nausea or vomiting. She endorses moderate incisional pain but is otherwise feeling well, she has been OOB, voiding independently. Her vitals have been stable and WNL with exception of tachycardia to the 130s when ambulating. Pain: APAP, oxy Diet: Regular IVF: HLIV LTD: PIV Endo: None Ppx: SCD (received LVX pre-op) Abx: None [ ] Monitor tachycardia [ ] D/c home 10/09 POD1 with follow-up Depression 10/18/2020 Anxiety 10/18/2020 Family History Medical History Relation Name Comments Alcohol abuse Father Brain Aneurysm Father Diabetes Maternal Grandmother Relation Name Status Comments Father Alive Maternal Grandfather Maternal Grandmother Alive Mother Alive Paternal Grandfather Paternal Grandmother Social History Tobacco Use Types Packs/Day Years Used Date Smoking Tobacco: Never Smokeless Tobacco: Current Tobacco Cessation:Ready to Q uit: Not Asked; Counseling Given: Not Answered Alcohol Use Standard Drinks/Week Comments Not Currently 0 (1 standard drink = 0.6 oz pure alcohol) Rarely drinks wine, but no hard alcohol. Comments No Sex and Gender Information Value Date Recorded Sex Assigned at Female 05/02/2022 1:59 PM EST Legal Sex Female 8:58 AM EST Gender Identity Female 05/02/2022 1:59 PM EST Sexual Orientation Bisexual 05/02/2022 1: 59 PM EST Last Filed Vital Signs Vital Sign Reading Time Taken Comments Blood Pressure 96/60 11/13/2023 2:26 PM EDT Pulse 53 11/13/2023 2:26 PM EDT Temperature 36.6 C (97.9 F) 11/13/2023 2:26 PM EDT Respiratory Rate 20 04/17/2023 1:47 PM EST Oxygen Saturation 100% 11/13/2023 2:26 PM EDT Inhaled Oxygen Concentration - - Weight 46.8 kg (103 lb 1.6 oz) 11/13/2023 2:26 P M EDT Height 160 cm (5' 3 ) 07/31/2023 2:10 PM EDT Body Mass Index 18.26 07/31/2023 2:10 PM EDT Plan of Treatment Upcoming Encounters Date Type Department Care Team (Late st Contact Info) Description 05/11/2025 3:30 PM EST Office Visit [facility] [address] [place] [phone] Hotel Supplies Salesperson: Juan Gan Jr., MD [address] [place] [address] Health Maintenance Due Date Last Done Comments HIV Screening 1999 Hepatitis C Screening 1999 Pap Smear 1999 Alcohol/Substance Use Screening 05/20/2024 Depression Screening and Follow-Up 05/20/2024 Social Drivers of Health Annual Screening 05/20/2024 COVID-19 Vaccine (1 - 2025-26 season) 2025 DTaP,Tdap,and Td Vaccines (7 - Td or Tdap) 07/29/2033 07/30/2023, 08/30/2010, 09/08/2003, Additional history exists Varicella Vaccines Completed 08/30/2010, 09/13/2000 HPV Vaccines Completed 03/14/2012, 02/18, 08/30/2010 Hepatitis B Vaccines Completed 07/16/2018, 03/19/2016, 02/26/2000, Additional history exists Influenza Vaccine Completed 02/12/2025, , 03/17/2021, Additional history exists Pneumococcal Vaccine: Pediatric (0-5 Years) and At-Risk Patients (6-50 Years) Aged Out No longer eligible based on patient's age to complete this topic Medical Devices Implanted Type Area Alumni Relations Officer Device Identifier Shelf Expiration Date Model / Serial / Lot Device Vascular Closure Iron Erector Mynx 5fr - S0 - [id number] Implanted:Qty: 1 on 05/03/2022 by Girma Hunt MD at [facility] Implant Right: Groin Cordis [id number] 01/18/2024 [id number] / 0 / [id number] Insurance [id number] Advance Directives * Full Code (Latest Code Status on File) Date Activated Date Inactivated Comments 10/08/2022 6:25 PM 10/09/2022 1:20 PM * Presumed Full Code Date Activated Date Inactivated Comments 10/08/2022 12:06 PM 10/08/2022 6:25 PM * Full Code Date Activated Date Inactivated Comments 05/03/2022 2:53 PM 05/03/2022 9:53 PM * Full Code Date Activated Date Inactivated Comments 05/03/2022 12:45 PM 05/03/2022 2:53 PM Care Teams Audiology Assistant Relationship Specialty Start Date End Date Domingo Clancy MD PCP - General 04/10/22
--- OUTSIDE RECORDS SUMMARY | 2025-04-23 20:04 | XMS_ITS | Encounter Summary ---
Author Organization [facility] Address [address] [place] [address] Care Team Providers Care Land Reclamation Specialist Name Role Phone Domingo Clancy MD Primary Care Provider [phone] Encounter Details Date Type Department Care Team (Late st Contact Info) Description 06/27/2022 Orders Only [facility] Interventional Radiology [address] [place] [phone] Sandy Pederson MD [address] [place] [address] [phone] Social History Tobacco Use Types Packs/Day Years Used Date Smoking Tobacco: Never Smokeless Tobacco: Current Alcohol Use Standard Drinks/Week Comments Not Asked [...] Description 05/11/2025 3:30 PM EST Office Visit [facility] [address] [place], [place] [id number] Combine Driver: Juan Gan Jr., MD [address] [place] [phone] documented as of this encounter Visit Diagnoses Not on filedocumented in this encounter Care Teams Land Reclamation Specialist Relationship Specialty Start Date End Date Domingo Clancy MD PCP - General 04/10/22 documented as of this encounter
--- OUTSIDE RECORDS SUMMARY | 2025-04-23 20:04 | XMS_ITS | Clinical Summary ---
Author Organization [facility] Address [address] [place] [phone] Phone Care Team Providers Care President [employer] Consulting Name Role Phone Ashley Brumfield MD Primary Care Provider Unavailabl e Allergies No known active allergies Medications No known medications Active Problems Problem Noted Date Diagnosed Date Iron deficiency anemia ronald walker to inadequate dietary iron intake 06/26/2016 Situational depression 04/30/2016 Assessment & Plan (12/16/2019 4:36 PM EDT): Managing ok-depression and anxiety seem to be heightened right now due to living stressors. No self harm or SI. Discussed therapy, meds, she will consider therapy. Deliberate self-cutting 03/19/2016 Resolved Problems Problem Noted Date Diagnosed Date Resolved Date Post concussion syndrome 09/25/201607/2017 Immunizations Immunization Administration Dates Next Due DTaP 09/08/2003, 3,02/26/2000,01/10,1999 H1N1 05/02/2009 HPV, Quadrivalent 03/14/2012,03/13/2011,08/31/19 11 Hep A, ped/adol 03/18/2015,08/30/2010 Hep B, ped/adol 03/19/2016, 0,01/15/2000,10/29 Hib (PRP-T) 12/20/2000,01/15/2000,1999 IPV 09/08/2003, 0,01/15/2000,10/29 Influenza, injectable, quadrivalent 02/19,03/18/2014,03/14/2012,03/13 Influenza, injectable, quadr ivalent, preservative free 04/21/2018,03/21/2017,03/18/2015,03/17 MMR 09/08/2003,09/13/2000 Meningococcal Conj (Menactra) MCV4P 03/19/2016,0 08/30/2010 Tdap 08/30/2010 Varicella 08/30/2010,09/13/2000 Family History Medical History Relation Name Comments No Known Problems Brother Alcoholism Father Aneurysm Father brain Throat cancer Maternal Grandfather Diabetes Maternal Grandmother Hypertension Maternal Grandmother No Known Problems Mother Cancer Paternal Grandmother Relation Name Status Comments Brother Alive Father Alive alcoholic, brai n aneurysm Maternal Grandfather throat cancer diagnosed with MALIGNANT NEOPLASM NOS Maternal Grandmother Alive diabete s, hypertension diagnosed with Hypertension, DMII WO CMP NT ST UNCNTR Mother Alive Healthy Paternal Grandfather unknown to mother; may have been an alcoholic? Paternal Grandmother cancer diagnosed with MALIGNANT NEOPLASM NOS Social History Tobacco Use Types Packs/Day Years Used Date Smoking Tobacco: Never Assessed Hunger/Food Answer Date Recorded In the last 12 months, did y ou or your family ever eat less than you felt you should because there wasn't enough money for food? No 12/16/2019 Stable Housing Answer Date Recorded Are you worried that in the next 2 months you may not have stable housing? No 12/16/2019 Transportation Concerns Answer Date Rec orded In the last 12 months, have you or your family ever had to go without healthcare because you didn't have a way to get there? No 12/16/2019 Hazards in Home Answer Date Recorded Think about the place you li ve. Do you have problems with any of the following? Pests (mice or roaches), mold, no/not working smoke detectors, water leaks, no window guards. No 2019 Financing Utilities Answer Date Recorde d In the last 12 months, has t he electric, gas, oil, or water company threatened to shut off your services in your home? No 12/16/2019 Safety at Home Answer Date Recorded Are you or your family worried about feeling saf e in your home? No 12/16/2019 Outside Support Answer Date Recorded Do you feel that you need mo re support from other people or programs to help you care for yourself or your family? No 12/16/2019 Understanding Health Concerns Answer Da te Recorded Do you need help understandi ng your or your child's healthcare needs (diagnosis, medications, plan, etc.)? No 12/16/2019 Financing Health Concerns Answer Date R ecorded In the last 12 months, was t here a time when your child needed to see a doctor or get medications or supplies but could not because of cost? No 12/16/2019 Missing School or Work Answer Date Tamir rded Did you or your child miss s chool or work because of a health problem that could have been avoided? No 12/16/2019 Comments Unknown Sex and Gender Information Value Date Recorded Sex Assigned at Not on file Legal Sex Female 6:24 PM EDT Gender Identity Not on file Sexual Orientation Not on file Last Filed Vital Signs Vital Sign Reading Time Taken Comments Blood Pressure 116/64 12/16/2019 3:40 PM EDT Pulse - - Temperature 36.6 C (97.9 F) 12/01/2018 2:34 PM EDT Respiratory Rate - - Oxygen Saturation - - Inhaled Oxygen Concentration - - Weight 44 kg (97 lb) 12/16/2019 3:40 PM EDT Height 161.3 cm (5' 3.5 ) 12/16/2019 3:40 PM EDT Body Mass Index 16.91 12/16/2019 3:40 PM EDT Plan of Treatment Health Maintenance Due Date Last Done Comments DTaP,Tdap,and Td Vaccines (6 - Td or Tdap) 08/30/2020 08/30/2010, 09/08/2003, 03/15/2003, Additional history exists Influenza Vaccines (#1) 2024 04/21/20 18, 03/21/2017, 03/19/2016, Additional history exists COVID-19 Vaccine ( season) 2025 HIB Vaccines Completed 12/20/2000, 12/19, 1999 IPV Vaccines Completed 09/08/2003, 01/2000, 01/15/2000, Additional history exists MMR Vaccines Completed 09/08/2003, 09/13/2000 Varicella Vaccines Completed 08/30/2010, 09/13/2000 HPV Vaccines Completed 03/14/2012, 02/18, 08/30/2010 Hepatitis A Vaccines Completed 03/18/2015, 08/31/19 11 Hepatitis B Vaccines Completed 03/19/2016, 02/26/2000, 01/15/2000, Additional history exists Meningococcal Vaccine Completed 03/19/2016, 011 Men B Vaccine Aged Out No longer elig ible based on patient's age to complete this topic Pneumococcal Vaccine Aged Out No long er eligible based on patient's age to complete this topic Procedures * Due to [place] iJento law, this organization might not be sharing sensitive test results. Procedure Name Priority Date/Time Associated Diagnosis Comments CHLAMYDIA AND GONORRHEA, AMPLIFIED Routine 12/16/2019 3:58 PM EDT Well adult exam from Last 3 Months or Most Recently Relevant to Health Maintenance Results * Due to [place] iJento law, this organization might not be sharing sensitive test results. * Chlamydia and Gonorrhea, Amplified (12/16/2019 3:58 PM EDT) Chlamydia Trachomatis, DNA Probe NEGATIVE (NEG) [facility] Comment: No Chlamydia Trachomatis RNA detected in this patient's sample (REFERENCE RANGE/NORMAL VALUE: NOT DETECTED) Note: This test uses ladies underwear operator- mediated amplification method to detect rRNA from C. Trachomatis URINE GC AMP PROBE NEGATIVE (NEG) [facility] Comment: No Neisseria Gonorrhoeae RNA detected in this patient's sample (REFERENCE RANGE/NORMAL VALUE: NOT DETECTED) NOTE: This test uses ladies underwear operator-mediated amplification method to detect rRNA from N.Gonorrhoeae. A negative result does not preclude infection. In the case of a negative urine result, testing of an endocervical(female) or urethral (male) specimen is recommended if there is high clinical suspicion of infection. Due to very high sensitivity of Nucleic Acid Amplification Test, false positive results may occur. Therefore, specimen handling is extremely important. In patients in whom the disease is unlikely, additional sample for testing should be considered after an initial positive result. The performance characteristics of this test have not been evaluated in children. The Aptima Combo2 assay is not intended for the evaluation of suspected sexual abuse or for other medico-legal indications. The ordering provider should assess if the patient had consensual sex without risk of sexual abuse. Consult the [facility] if needed. Contact phone number . Therapeutic failure or success cannot be determined with the Aptima Combo2 assay since nucleic acid may persist following appropriate antimicrobial therapy. The Centers for Disease Control and Prevention (CDC) recommends confirmatory retesting using culture or a different nucleic acid amplification test when positive results occur, if indicated. Testing performed or reported by [facility], a Service of [facility], [address] [place] [address] Jalen Encarnacion MD, Fitting Room Attendant Urine (Urine) 12/16/2019 3:5 8 PM EDT 12/16/2019 8:22 PM EDT us Elva Wilkins UR COORDINATOR LAB MICROBIOLOGY - GENER AL ORDERABLES Final Result [facility] from Last 3 Months or Most Recently Relevant to Health Maintenance Insurance [employer] Care Teams President [employer] Consulting Relationship Specialty Start Date End Date Ashley Brumfield MD PCP - General 11/05/19
--- OUTSIDE RECORDS SUMMARY | 2025-04-23 20:04 | XMS_ITS | Encounter Summary ---
Author Organization [facility] Address [address] [place] [address] Care Team Providers Care Director Of Graduate Admissions Name Role Phone Domingo Clancy MD Primary Care Provider [phone] Encounter Details Date Type Department Care Team (Late st Contact Info) Description 06/08/2022 Orders Only [facility] Nuclear Medicine [address] [place] [phone] Aman Terry MD PhD [address] [place] [phone] Social History Tobacco Use Types Packs/Day Years [...] Description 05/11/2025 3:30 PM EST Office Visit [facility] [address] [place] [address] [phone] Area Development Consultant: Juan Gan Jr., MD [address] [place] [phone] documented as of this encounter Visit Diagnoses Not on filedocumented in this encounter Care Teams Director Of Graduate Admissions Relationship Specialty Start Date End Date Domingo Clancy MD PCP - General 04/10/22 documented as of this encounter
--- OUTSIDE RECORDS SUMMARY | 2025-04-23 20:04 | XMS_ITS ---
Author Name [facility] Organization Unknown Care Team Organization Name Specialty Phone Email Start Date End Da te [facility] Termed, PROVIDER Primary Care 05/01/202312/18 [facility] Domingo Clancy Primary Care 03/27/202212/18
--- OUTSIDE RECORDS SUMMARY | 2025-04-23 20:04 | XMS_ITS | Encounter Summary ---
Author Organization [facility] Address [address] [place] [address] Phone Care Team Providers Care Dental Practice Manager Name Role Phone Ashley Brumfield MD Primary Care Provider Unavailabl e Encounter Details Date Type Department Care Team (Late st Contact Info) Description 10/06/2017 Conversion [facility]counter [facility] [address] [address] Charlotte Mason MD [address] [place] [address] Social History Tobacco Use Types Packs/Day Years Used Date Smoking Tobacco: Never Assessed Comments Unknown Sex and Gender Information Value Date Recorded Sex Assigned at Not on file Legal Sex Female 6:24 PM EDT Gender Identity Not on file Sexual Orientation Not on file documented as of this encounter Plan of Treatment Not on file documented as of this encounter Visit Diagnoses Not on filedocumented in this encounter Care Teams Dental Practice Manager Relationship Specialty Start Date End Date Ashley Brumfield MD PCP - General 11/05/19 documented as of this encounter
--- OUTSIDE RECORDS SUMMARY | 2025-04-23 20:04 | XMS_ITS | Clinical Summary ---
Author Organization [facility] [address] [facility] Address [address] [place] [address] Phone Care Team Providers Care Chief Engineer'S Helper Name Role Phone Aura Lozada MD Primary Care Provider [phone] Allergies No known active allergies Medications No known medications Active Problems Problem Noted Date Diagnosed Date History of suicide attempt 01/25/2025 Overview (01/25/2025): Pills Syncope 06/13/2023 Overview (04/10/2024): Last Assessment & Plan: Events were consistent with vasovagal syncope. She appears to have increased vagal tone, evident by type I second-degree AV block during the night. Will obtain echocardiogram to exclude structure heart abnormality. We discussed the precautions, and suggest her to sit down or lay down in the setting of severe pain to avoid injury. Abnormal Holter exam 06/11/2023 Overview (04/10/2024): Without 2nd degree AV block type 1 Last Assessment & Plan: Is likely caused by increased for this young female. There is no further intervention needed. She is cleared for wisdom tooth extraction. 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 Moran at [facility], recently evaluated for this, please see visit note from 01/25/2025 requesting a referral to [facility]. Orders: Ambulatory referral to Gastroenterology; Future Gastroesophageal reflux disease without esophagi tis 09/12/2021 Anemia 10/18/2020 Anxiety 10/18/2020 Depression 10/18/2020 Assessment & Plan (02/12/2025 8:06 AM EDT): Patient report history of anxiety/depression-she is looking to establish with a therapist was referred for this in June however reports has not heard on the referral. No SI or HI. Orders: Ambulatory referral to Talkiatry; Future Marijuana use, continuous 10/18/2020 Iron deficiency anemia secon aaron to inadequate dietary iron intake 06/26/2016 Encounters Date Type Department Care Team Description 02/12/2025 7:30 AM EDT Office Visit Adult Medicine [address] [phone] Aura Lozada MD PE (physical exam), annual (Primary Dx); Need for prophylactic vaccination and inoculation against influenza; Median arcuate ligament syndrome (CMS/HCC V24); Screen for STD (sexually transmitted disease); Depression, unspecified depression type 01/25/2025 1:00 PM EDT Office Visit Adult Medicine [address] [phone] Judith Lu PA Abdominal pain, unspecified abdominal location (Primary Dx); Iron deficiency anemia, unspecified iron deficiency anemia type; Generalized joint pain; History of suicide attempt from Last 3 Months Immunizations Immunization Administration Dates Next Due DTaP (Infanrix) 6wks to less than 7yo ,03/15/2003,02/26/2000,01/10,1999 H1N1 All Forms 05/02/2009 HPV, Quadrivalent 03/14/2012,03/13/2011,08/31/19 11 Hepatitis A Pediatric (Havri x; Vaqta) 12mo to less than 19yo 03/18/2015,08/30/2010 Hepatitis B Pediatric (Enger ix B; Recombivax HB) to less than 20 yo 07/16/2018,03/19/2016,02/26/2000,01/14,1999 HiB PRP-T conjugate (Acthib, Hiberix) 6wks and older 12/20/2000,01/15/2000,1999 IPV Inactivated polio (Ipol) 6wks and older 09/08/2003,02/26/2000,01/15/2000,10/29 Influenza Quadravalent, MDCK , 0.5ml, preservative free (Flucelvax) 6mo and older 03/08/2023,03/17/2021 Influenza Quadrivalent, 0.5m l, preservative free (Fluarix; FluLaval; Fluzone) ages 6mo and older (Afluria) 3yo and older 04/21/2018,03/21/2017,03/18/2015,03/17 Influenza Quadrivalent, with preservative (Fluzone; Afluria) 6mo and older 03/19/2016,03/18/2014,03/14/2012,03/13 Influenza trivalent, MDCK, 0 .5mL, preservative free (Flucelvax) 6mo and older 02/12/2025 MMR, measles mumps and rubel la Live (Priorix; M-M-R II) 12mo and older 07/16/2018,09/08/2003,09/13/2000 Meningococcal MCV4P 03/19/2016,08/30/2010 Tdap Tetanus diptheria acell ular pertussis (Boostrix; Adacel) 7yo and older 07/30/2023,08/30/2010 Varicella live (Varivax) 12m o and older 08/30/2010,09/13/2000 Surgical History Surgery Date Site/Laterality Comments OTHER SURGICAL HISTORY 10/08/2022 PROCEDURE: HISTORICAL UNSPECIFIED SURGERY; COMMENT: median arcuate ligament repair ([facility]) Medical History Medical History Date Comments Depression DX:Depression Anxiety DX:Anxiety Anemia DX:Anemia Family History Medical History Relation Name Comments No Known Problems Brother full sibli ng Alcohol abuse Father Rudy Hutchins Brain Aneurysm Father Rudy Hutchins when he was y oung No Known Problems Mother No Known Problems Sister 3 half sis ters paternal Breast cancer Neg Hx mother's aunt Ovarian cancer Neg Hx Uterine cancer Neg Hx Relation Name Status Comments Brother Alive Father Rudy Hutchins Alive Maternal Grandfather Maternal Grandmother Alive Mother Alive Paternal Grandfather Paternal Grandmother Sister Alive Social History Tobacco Use Types Packs/Day Years Used Date Smoking Tobacco: Never Smokeless Tobacco: Never Alcohol Use Standard Drinks/Week Comments Not Currently 3 (1 standard drink = 0.6 oz pur e alcohol) Housing Instability Answer Date Recorde d Are you worried that in the next 2 months you may not have stable housing? Unable to respond 08/12/2024 Food Access & Nutrition Answer Date Rec orded Do you have access to a vari ety of food including fruits and vegetables? Yes 08/12/2024 Access to Healthcare Answer Date Record ed Within the last 3 months, ho w many times did you visit the emergency department for your medical care? 1 08/12/2024 Health Literacy Answer Date Recorded How often do you need to hav e someone help you when you read instructions, pamphlets, or other written material from your doctor or pharmacy? Never 08/12/2024 Caregiver: How often do you need to have someone help you when you read instructions, pamphlets, or other written material from your doctor or pharmacy? Not on file 08/12/2024 Financial Risk Answer Date Recorded How hard is it for you to pa y for the very basics like food, housing, medical care, and air conditioning / heating? Very hard 08/12/2024 Transportation Answer Date Recorded Has the lack of transportati on kept you from meetings, work, or from getting things needed for daily living? No Has the lack of transportati on kept you from medical appointments or from getting medications? No 08/12/2024 Social Isolation Answer Date Recorded How often do you feel lonely or isolated from th ose around you? Often 08/12/2024 Food Risk Answer Date Recorded Within the past 12 months we worried whether our food would run out before we got money to buy more. Sometimes true 025 Within the past 12 months th e food we bought just didn't last and we didn't have money to get more. Sometimes true 08/12/2024 Dependent Care Answer Date Recorded Do you need help finding or paying for care for your loved ones. For example, child welfare assistant or elderly care for an older adult? No 08/12/2024 Education Answer Date Recorded Do you think completing more education or training, like finishing a GED, going to college, or learning a trade, would be helpful for you? Yes 08/12/2024 Employment and Income Answer Date Recor ded During the last four weeks, have you been actively looking for work? Yes 08/12/2024 Living Situation Answer Date Recorded What is your living situation? Unrecognized valu e 08/12/2024 Comments Unknown Sex and Gender Information Value Date Recorded Sex Assigned at Not on file Legal Sex Female 2:32 PM EST Gender Identity Not on file Sexual Orientation Not on file Obstetrics History Last Filed Vital Signs Vital Sign Reading Time Taken Comments Blood Pressure 100/62 02/12/2025 7:33 AM EDT Pulse 76 02/12/2025 7:33 AM EDT Temperature 36.2 C (97.2 F) 02/12/2025 7:33 AM EDT Respiratory Rate 12 02/12/2025 7:33 AM EDT Oxygen Saturation 98% 02/12/2025 7:33 AM EDT Inhaled Oxygen Concentration - - Weight 45.3 kg (99 lb 12.8 oz) 02/12/2025 7:33 A M EDT Height 160 cm (5' 3 ) 02/12/2025 7:33 AM EDT Body Mass Index 17.68 02/12/2025 7:33 AM EDT Plan of Treatment Upcoming Encounters Date Type Department Care Team (Late st Contact Info) Description 08/12/2025 2:30 PM EDT Office Visit Adult Medicine [address] [phone] Aura Lozada MD [address] [place] [address] Health Maintenance Due Date Last Done Comments Cervical Cancer Screening: Pap Smear 09/30/2023 09/29/2020, 09/29/2020, 09/29/2020 COVID-19 Vaccine ( season) 2025 Social Influencers of Health Screening 08/12/2025 08/12/2024 Cholesterol Screening (Lipid Panel) 02/12/2030 02/12/2025, 03/11/2023 DTaP,Tdap,and Td Vaccines (7 - Td or Tdap) 07/29/2033 07/30/2023, 08/30/2010, 09/08/2003, Additional history exists RSV Immunization Adult Patients (1 - 1-dose 75+ series) 08/24/2074 HIB Vaccines Completed 12/20/2000, 12/19, 1999 IPV Vaccines Completed 09/08/2003, 01/2000, 01/15/2000, Additional history exists Varicella Vaccines Completed 08/30/2010, 09/13/2000 HPV Vaccines Completed 03/14/2012, 02/18, 08/30/2010 Hepatitis A Vaccines Completed 03/18/2015, 08/31/19 11 Meningococcal ACWY Vaccine Completed 03/19/2016, Hepatitis B Vaccines Completed 07/16/2018, 03/19/2016, 02/26/2000, Additional history exists MMR Vaccines Completed 07/16/2018, 08/19, 09/13/2000 Depression Screening Completed 02/12/2025 Gonorrhea/Chlamydia Screening Discontinued 02/12/2025 HIV Screening Completed 02/12/2025 Hepatitis C Screening Completed 02/12/2025 Influenza Vaccine Completed 02/12/2025, , 03/17/2021, Additional history exists Meningococcal B Vaccine Aged Out No l onger eligible based on patient's age to complete this topic Pneumococcal Vaccine: Pediatrics (0 to 5 Years) and At-Risk Patients (6 to 49 Years) Aged Out No longer eligible based on patient's age to complete this topic RSV Immunization Patients Under 20 months Aged Out No longer eligible based on patient's age to complete this topic Procedures Procedure Name Priority Date/Time Associated Diagnosis Comments TREPONEMA PALLIDUM ANTIBODY WITH REFLEX TO RPR AND PARTICLE AGGLUTINATION Routine 02/12/2025 8:14 AM EDT Screen for STD (sexually transmitted disease) HIV 1, 2 ANTIBODY, P24 ANTIGEN WITH REFLEX TO DIFFERENTIATION Routine 02/12/2025 8:14 AM EDT Screen for STD (sexually transmitted disease) HEPATITIS C ANTIBODY Routine 02/12/2025 8:14 AM EDT Screen for STD (sexually transmitted disease) THYROID STIMULATING HORMONE WITH REFLEX TO FREE T4 AND FREE T3 Routine 02/12/2025 8:14 AM EDT PE (physical exam), annual COMPREHENSIVE METABOLIC PANEL Routine 02/12/2025 8:14 AM EDT PE (physical exam), annual LIPID PANEL WITH REFLEX TO DIRECT LDL Routine 02/12/2025 8:14 AM EDT PE (physical exam), annual VITAMIN D 25 HYDROXY Routine 02/12/2025 8:14 AM EDT PE (physical exam), annual CHLAMYDIA TRACHOMATIS AND NEISSERIA GONORRHOEAE PCR Routine 02/12/2025 8:14 AM EDT Screen for STD (sexually transmitted disease) CBC WITH AUTO DIFFERENTIAL Routine 01/25/2025 1:43 PM EDT Generalized joint pain Iron deficiency anemia, unspecified iron deficiency anemia type JOANN IFA WITH TITER AND PATTERN Routine 01/25/2025 1:43 PM EDT Generalized joint pain RHEUMATOID FACTOR Routine 01/25/2025 1:4 3 PM EDT Generalized joint pain CBC AND DIFFERENTIAL Routine 01/25/2025 1:43 PM EDT Generalized joint pain Iron deficiency anemia, unspecified iron deficiency anemia type SEDIMENTATION RATE Routine 01/25/2025 1: 43 PM EDT Generalized joint pain BORRELIA BURGDORFERI ANTIBODY Routine 01/25/2025 1:43 PM EDT Generalized joint pain IRON AND TIBC Routine 01/25/2025 1:43 PM EDT Iron deficiency anemia, unspecified iron deficiency anemia type FERRITIN Routine 01/25/2025 1:43 PM EDT Iron deficiency anemia, unspecified iron deficiency anemia type URIC ACID Routine 01/25/2025 1:43 PM EDT Generalized joint pain PAP SMEAR Routine 09/29/2020 from Last 3 Months or Most Recently Relevant to Health Maintenance Results * Hepatitis C antibody (02/12/2025 8:14 AM EDT) Hepatitis C Antibody Negative Negative LAB CHEMISTRY METHOD 02/12/2025 1:22 PM EDT [facility] Blood Venous blood specimen / Unknown Venipuncture / Unknown 02/12/2025 8:14 AM EDT 02/12/2025 8:14 AM EDT Aura Lozada MD LAB BLOOD ORDERABLES Final Resul t [facility] [address] [place] [address], [place] [phone] * HIV 1,2 antibody, p24 antigen with reflex to differentiation (02/12/2025 8:14 AM EDT) Pathologist [facility] [place] HIV Combo AB/AG Negative Negative LAB CHEMISTRY METHOD 02/12/2025 1:23 PM EDT [facility] Blood Venous blood specimen / Unknown Venipuncture / Unknown 02/12/2025 8:14 AM EDT 02/12/2025 8:14 AM EDT Narrative [facility] - 02/12/2025 1:23 PM EDT This assay is a 4th generation assay allowing for earlier detection of HIV infection by detecting the presence of the HIV-1 p24 antigen as well as the traditional antibodies to HIV type 1 (including group O) and type 2. Use of a 4th generation assay is the current CDC recommendation for HIV screening. us Aura Lozada MD LAB BLOOD ORDERABLES Final Resul t Performing Organization Address City/[facility]/ZIP Co de Phone Number [facility] [address] [place] [address], [place] [phone] * Treponema pallidum antibody with reflex to RPR and particle agglutination (02/12/2025 8:14 AM EDT) T. Pallidum Antibodies Negative Negative LAB CHEMISTRY METHOD 02/12/2025 12:55 PM EDT [facility] Blood Venous blood specimen / Unknown Venipuncture / Unknown 02/12/2025 8:14 AM EDT 02/12/2025 8:14 AM EDT us Aura Lozada MD LAB BLOOD ORDERABLES Final Resul t Performing Organization Address [facility] Co de Phone Number [facility] [address] [place] [address], [place] [phone] * Thyroid stimulating hormone with reflex to free t4 and free t3 (02/12/2025 8:14 AM EDT) TSH 2.00 0.40 - 4.00 mcIU/mL LAB CHEMISTRY METHOD 02/12/2025 12:44 PM EDT [facility] Blood Venous blood specimen / Unknown Venipuncture / Unknown 02/12/2025 8:14 AM EDT 02/12/2025 8:14 AM EDT us Aura Lozada MD LAB BLOOD ORDERABLES Final Resul t Performing Organization Address [facility]/ZIP Co de Phone Number [facility] [address] [place] [address], [place] [phone] * Lipid panel with reflex to direct LDL (02/12/2025 8:14 AM EDT) Cholesterol 144 0 - 200 mg/dL LAB CHEMISTRY METHOD 02/12/2025 11:34 AM EDT [facility] Triglycerides 62 0 - 150 mg/dL LAB CHEMISTRY METHOD 02/12/2025 11:34 AM EDT [facility] HDL 63 >=40 mg/dL LAB CHEMISTRY METHOD 02/12/2025 11:34 AM [facility] LDL Calculated 69 0 - 100 mg/dL LAB CHEMISTRY METHOD 02/12/2025 11:34 AM EDT [facility] Comment:Estimated LDL Calcul ated using equation: Total cholesterol - HDL cholesterol - (Triglycerides/5) VLDL Cholesterol Hunter 12.4 mg/dL LAB CHEMISTRY METHOD 02/12/2025 11:34 AM EDT [facility] Non HDL Chol. (LDL+VLDL) 81 <145 mg/dL LAB CHEMISTRY METHOD 02/12/2025 11:34 AM [facility] Chol/HDL Ratio 2.3 0.0 - 4.4 LAB CHEMISTRY METHOD 02/12/2025 11:34 AM EDT [facility] Blood Venous blood specimen / Unknown Venipuncture / Unknown 02/12/2025 8:14 AM EDT 02/12/2025 8:14 AM EDT us Aura Lozada MD LAB BLOOD ORDERABLES Final Resul t [facility] [address] [place] [address], * Chlamydia trachomatis and Neisseria gonorrhoeae molecular study (02/12/2025 8:14 AM EDT) Neisseria gonorrhoeae PCR Negative Negative LAB MOLECULAR DIAGNOSTICS METHOD 02/12/2025 1:07 PM EDT [facility] Chlamydia trachomatis PCR Negative Negative LAB MOLECULAR DIAGNOSTICS METHOD 02/12/2025 1:07 PM T [facility] Urine First stream urine specimen / Unknown Non-blood Collection / Unknown 02/12/2025 8:14 AM EDT 02/12/2025 8:14 AM EDT us Aura Lozada MD LAB MICROBIOLOGY - GENERAL ORDER NERIS Final Result Performing Organization Address City/[facility]/ZIP Co de Phone Number [facility] [address] [place] [address], [place] [phone] * Vitamin D 25 hydroxy (02/12/2025 8:14 AM EDT) [facility] Vit D, 25-Hydroxy 32.8 30.0 - 80.0 ng/mL LAB CHEMISTRY METHOD 02/12/2025 12:43 PM EDT [facility] Blood Venous blood specimen / Unknown Venipuncture / Unknown 02/12/2025 8:14 AM EDT 02/12/2025 8:14 AM EDT us Aura Lozada MD LAB BLOOD ORDERABLES Final Resul t Performing Organization Address [facility]/ZIP Co de Phone Number [facility] [address] [place] [address], [place] [phone] * Comprehensive metabolic panel (02/12/2025 8:14 AM EDT) [facility] Sodium 139 133 - 145 mmol/L LAB CHEMISTRY METHOD 02/12/2025 11:34 AM EDT [facility] Potassium 4.0 3.5 - 5.5 mmol/L LAB CHEMISTRY METHOD 02/12/2025 11:34 AM EDT [facility] Chloride 106 96 - 110 mmol/L LAB CHEMISTRY METHOD 02/12/2025 11:34 AM [facility] CO2 29 21 - 32 mmol/L LAB CHEMISTRY METHOD 02/12/2025 11:34 AM T [facility] Anion Gap 4 3 - 11 LAB CHEMISTRY METHOD 02/12/2025 11:34 AM EDT [facility] Glucose 86 70 - 100 mg/dL LAB CHEMISTRY METHOD 02/12/2025 11:34 AM [facility] BUN 11 5 - 25 mg/dL LAB CHEMISTRY METHOD 02/12/2025 11:34 AM [facility] Creatinine 0.51 0.50 - 1.10 mg/dL LAB CHEMISTRY METHOD 02/12/2025 11:34 AM [facility] eGFR 133 >=60 mL/min/1. 73m2 LAB CHEMISTRY METHOD 02/12/2025 11:34 AM [facility] Comment:Calculation based on the Chronic Kidney Disease Epidemiology Collaboration (CKD-EPI) equation refit without adjustment for race. BUN/Creatinine Ratio 21.6 LAB CHEMISTRY METHOD 02/12/2025 11:34 AM [facility] Calcium 9.2 8.5 - 10.5 mg/dL LAB CHEMISTRY METHOD 02/12/2025 11:34 AM [facility] AST (SGOT) 16 10 - 42 unit/L LAB CHEMISTRY METHOD 02/12/2025 11:34 AM [facility] ALT (SGPT) 21 10 - 60 unit/L LAB CHEMISTRY METHOD 02/12/2025 11:34 AM [facility] Alkaline Phosphatase 78 42 - 121 unit/L LAB CHEMISTRY METHOD 02/12/2025 11:34 AM [facility] Total Protein 7.1 6.0 - 8.0 g/dL LAB CHEMISTRY METHOD 02/12/2025 11:34 AM [facility] Albumin 4.0 3.2 - 5.0 g/dL LAB CHEMISTRY METHOD 02/12/2025 11:34 AM [facility] Total Bilirubin 0.6 0.0 - 1.4 mg/dL LAB CHEMISTRY METHOD 02/12/2025 11:34 AM [facility] Blood Venous blood specimen / Unknown Venipuncture / Unknown 02/12/2025 8:14 AM EDT 02/12/2025 8:14 AM EDT us Aura Lozada MD LAB BLOOD ORDERABLES Final Resul t Performing Organization Address City/[facility]/ZIP Co de Phone Number [facility] [address] [place] [address], [place] [phone] * JOANN IFA with titer and pattern (01/25/2025 1:43 PM EDT) [facility] JOANN Negative Negative 01/26/2025 1:40 PM EDT [facility] Comment:JOANN performed by ind irect immunofluorescence (IFA) using HEp-2 substrate. Blood Venous blood specimen / Unknown Venipuncture / Unknown 01/25/2025 1:43 PM EDT 01/25/2025 1:43 PM EDT Judith DOUGLASS LAB BLOOD ORDERABLES Final Res ult Performing Organization Address City/[facility]/ZIP Co de Phone Number [facility] [address] [place] [address], [place] [phone] * (ABNORMAL) CBC auto differential (01/25/2025 1:43 PM EDT) [facility] WBC 8.3 4.8 - 10.8 K/mcL LAB HEMETOLOGY METHOD 01/25/2025 5:20 PM EDT [facility] RBC 3.80 3.80 - 4.80 M/mcL LAB HEMETOLOGY METHOD 01/25/2025 5:20 PM EDT [facility] Hemoglobin 11.9 11.5 - 16.0 g/dL LAB HEMETOLOGY METHOD 01/25/2025 5:20 PM EDT [facility] Hematocrit 36.8 35.0 - 47.0 % LAB HEMETOLOGY METHOD 01/25/2025 5:20 PM EDT [facility] MCV 97.9 79.0 - 98.0 FL LAB HEMETOLOGY METHOD 01/25/2025 5:20 PM EDT [facility] MCH 31.6 27.0 - 32.0 pcg LAB HEMETOLOGY METHOD 01/25/2025 5:20 PM EDT [facility] MCHC 32.3 32.0 - 37.0 g/dL LAB HEMETOLOGY METHOD 01/25/2025 5:20 PM EDT [facility] RDW 12.1 11.0 - 15.0 % LAB HEMETOLOGY METHOD 01/25/2025 5:20 PM EDT [facility] Platelets 210 130 - 400 K/mcL LAB HEMETOLOGY METHOD 01/25/2025 5:20 PM EDT [facility] MPV 13.3(H) 7.0 - 11.0 FL LAB HEMETOLOGY METHOD 01/25/2025 5:20 PM EDT [facility] NRBC 0.0 <1.0 % LAB HEMETOLOGY METHOD 01/25/2025 5:20 PM EDT [facility] NRBC Absolute 0.00 <0.10 K/mcL LAB HEMETOLOGY METHOD 01/25/2025 5:20 PM EDT [facility] Neutrophils Relative 63.0 % LAB HEMETOLOGY METHOD 01/25/2025 5:20 PM EDT [facility] Lymphocytes Relative 28.8 % LAB HEMETOLOGY METHOD 01/25/2025 5:20 PM EDT [facility] Monocytes Relative 7.0 % LAB HEMETOLOGY METHOD 01/25/2025 5:20 PM EDT [facility] Eosinophils Relative 0.5 % LAB HEMETOLOGY METHOD 01/25/2025 5:20 PM EDT [facility] Basophils Relative 0.5 % LAB HEMETOLOGY METHOD 01/25/2025 5:20 PM EDT [facility] Immature Granulocytes Relative 0.2 % LAB HEMETOLOGY METHOD 01/25/2025 5:20 PM EDT [facility] Neutrophils Absolute 5.20 1.50 - 7.00 K/mcL LAB HEMETOLOGY METHOD 01/25/2025 5:20 PM EDT [facility] Lymphocytes Absolute 2.38 1.00 - 5.00 K/mcL LAB HEMETOLOGY METHOD 01/25/2025 5:20 PM EDT [facility] Monocytes Absolute 0.58 0.20 - 1.00 K/mcL LAB HEMETOLOGY METHOD 01/25/2025 5:20 PM EDT [facility] Eosinophils Absolute 0.04 0.00 - 0.50 K/mcL LAB HEMETOLOGY METHOD 01/25/2025 5:20 PM EDT [facility] Basophils Absolute 0.04 0.00 - 0.20 K/mcL LAB HEMETOLOGY METHOD 01/25/2025 5:20 PM EDT [facility] Immature Granulocytes Absolute 0.02 0.00 - 0.03 K/mcL LAB HEMETOLOGY METHOD 01/25/2025 5:20 PM EDT [facility] Blood Venous blood specimen / Unknown Venipuncture / Unknown 01/25/2025 1:43 PM EDT 01/25/2025 1:43 PM EDT us Judith DOUGLASS LAB BLOOD ORDERABLES Final Res ult [facility] [address] [place] [address], * Iron and TIBC (01/25/2025 1:43 PM EDT) Iron 123 40 - 150 mcg/dL LAB CHEMISTRY METHOD 01/25/2025 4:58 PM EDT [facility] TIBC 322 250 - 450 mcg/dL LAB CHEMISTRY METHOD 01/25/2025 4:58 PM EDT [facility] Iron Saturation 38 15 - 50 % LAB CHEMISTRY METHOD 01/25/2025 4:58 PM EDT [facility] Blood Venous blood specimen / Unknown Venipuncture / Unknown 01/25/2025 1:43 PM EDT 01/25/2025 1:[address] [facility] BLOOD ORDERABLES Final Res ult Performing Organization Address [facility] Co de Phone Number [facility] [address] [place] [address], [place] [phone] * Borrelia burgdorferi antibody (01/25/2025 1:43 PM EDT) [facility] Lyme Ab Negative Negative LAB CHEMISTRY METHOD 01/26/2025 8:55 AM EDT [facility] Comment: No laboratory evidence of infection with B. burgdorferi (Lyme disease). Negative results may occur in patients recently infected (<=14 days) with B. burgdorferi. If recent infection is suspected, repeat testing on a new sample collected in 7- 14 days is recommended. Blood Venous blood specimen / Unknown Venipuncture / Unknown 01/25/2025 1:43 PM EDT 01/25/2025 1:43 PM EDT Judith Lu [place] LAB BLOOD ORDERABLES Final Res ult Performing Organization Address City/[facility]/ZIP Co de Phone Number [facility] [address] [place] [address], [place] [phone] * Sedimentation rate (01/25/2025 1:43 PM EDT) [facility] Sed Rate 4 0 - 20 mm/hr LAB HEMETOLOGY METHOD 01/25/2025 7:20 PM EDT [facility] Blood Venous blood specimen / Unknown Venipuncture / Unknown 01/25/2025 1:43 PM EDT 01/25/2025 1:43 PM EDT Judith DOUGLASS LAB BLOOD ORDERABLES Final Res ult [facility] [address] [place] [address], [place] [phone] * Rheumatoid factor (01/25/2025 1:43 PM EDT) Rheumatoid Factor <10.0 <15.0 I Unit/mL LAB CHEMISTRY METHOD 01/25/2025 4:58 PM EDT [facility] Blood Venous blood specimen / Unknown Venipuncture / Unknown 01/25/2025 1:43 PM EDT 01/25/2025 1:43 PM EDT Judith DOUGLASS LAB BLOOD ORDERABLES Final Res ult Performing Organization Address City/[facility]/ZIP Co de Phone Number [facility] [address] [place] [address], [place] [phone] * Uric acid (01/25/2025 1:43 PM EDT) [facility] Uric Acid 3.2 3.1 - 7.8 mg/dL LAB CHEMISTRY METHOD 01/25/2025 4:58 PM EDT [facility] Blood Venous blood specimen / Unknown Venipuncture / Unknown 01/25/2025 1:43 PM EDT 01/25/2025 1:43 PM EDT Judith DOUGLASS LAB BLOOD ORDERABLES Final Res ult [facility] [address] [place] [address], [place] [phone] * Ferritin (01/25/2025 1:43 PM EDT) Ferritin 19 8 - 252 ng/mL LAB CHEMISTRY METHOD 01/25/2025 5:00 PM EDT [facility] Blood Venous blood specimen / Unknown Venipuncture / Unknown 01/25/2025 1:43 PM EDT 01/25/2025 1:43 PM EDT Judith DOUGLASS LAB BLOOD ORDERABLES Final Res ult Performing Organization Address [facility]/ZIP Co de Phone Number [facility] [address] [place] [address], [place] [phone] * Pap smear (09/29/2020) 09/29/2020 Narrative HISTORICAL TESTING LAB RESULTING AGENCY - 10/11/2020 7:45 AM EDT [id number] THINPREP PAP, IMAGED: ATYPICAL SQUAMOUS CELLS OF UNDETERMINED SIGNIFICANCE (ASCUS) . ABUNDANT ACUTE INFLAMMATION. JOSÉ MANUEL WAYNE , JALIL(ASCP) (CASE SCREENED 10 04 2020) PABLO CHAHAL M.D. , PATHOLOGIST (CASE ELECTRONICALLY SIGNED 10 10 2020) RESULT OF APTIMA HIGH RISK HPV ASSAY: HIGH RISK HPV: NEGATIVE (SEROTYPES 16,18,31,33,35,39,45,51,52,56,58,59,66,68) COMPLETED ON 2020-10-06 ADEQUACY: SATISFACTORY ENDOCERVICAL/TRANSFORMATION ZONE COMPONENT PRESENT. SOURCE: THINPREP PAP HPV IF ASCUS, CERVICAL, IMAGED CLINICAL INFORMATION: HPV IF DIAGNOSIS OF ASCUS. [Z12.4, Z01.419] Glory Doss CNM LAB CYTOLOGY ORDERABLES Final Result HISTORICAL TESTING LAB RESULTING AGENCY from Last 3 Months or Most Recently Relevant to Health Maintenance Insurance [facility] Care Teams Chief Engineer'S Helper Relationship Specialty Start Date End Date Aura Lozada MD [address] [place] [phone] PCP - General Internal Medicine 07/03/24
--- OUTSIDE RECORDS SUMMARY | 2025-04-23 20:04 | XMS_ITS | Encounter Summary ---
Author Organization [facility] Address [address] [place] [address] Care Team Providers Care Administrative Judge Name Role Phone Domingo Clancy MD Primary Care Provider [phone] Encounter Details Date Type Department Care Team (Late st Contact Info) Description 06/21/2022 Telephone [facility] Neuro Interventional Radiology [address] [place] [id number] Leana Thibodeaux, RN Social History Tobacco Use Types Packs/Day Years [...] encounter Miscellaneous Notes * Telephone Encounter - Leana Thibodeaux RN - 06/21/2022 3:56 PM EST Pre-procedure phone call complete. Pt notified of arrival time change to 0830. documented in this encounter Plan of Treatment Upcoming Encounters Date Type Department Care Team (Late st Contact Info) Description 05/11/2025 3:30 PM EST Office Visit [facility] [address] [place] [address] Classroom Teacher: Juan Gan Jr., MD [address] [place] [phone] documented as of this encounter Visit Diagnoses Not on filedocumented in this encounter Care Teams Administrative Judge Relationship Specialty Start Date End Date Domingo Clancy MD PCP - General 04/10/22 documented as of this encounter
== END 2025-04-23 18:24 | disposition home or self-care (01) ==
LOC: HO.ED 18:23
PROVIDERS: Physician Assistant Medical; Emergency Provider Student in an Organized Health Care Education/Training Program; PCP Internal Medicine
DX: S09.90XA Unspecified injury of head, initial encounter (principal); R51.9 Headache, unspecified; R06.02 Shortness of breath; R42 Dizziness and giddiness; R53.1 Weakness; R10.22 Pelvic and perineal pain left side; X58.XXXA Exposure to other specified factors, initial encounter; Y93.9 Activity, unspecified; Y92.9 Unspecified place or not applicable; Y99.8 Other external cause status; Z03.818 Encounter for observation for suspected exposure to other biological agents ruled out; Z79.899 Other long term (current) drug therapy
CPT/HCPCS: 70450; 71046; 80053; 82803; 83735; 84484; 84702; 85025; 87637; 93005; 99283

== ENCOUNTER → 2025-04-23 14:21 | Outpatient (BNV) | payer OTHER, SELFPAY | PROVIDERS: Visit Provider Radiology Diagnostic Radiology | DX: S09.90XA Unspecified injury of head, initial encounter (principal); R51.9 Headache, unspecified; R06.02 Shortness of breath | CPT/HCPCS: 70450; 71046 ==

== ENCOUNTER → 2025-04-23 14:21 | Outpatient (BNV) | payer OTHER, SELFPAY | PROVIDERS: Emergency Provider Student in an Organized Health Care Education/Training Program; PCP Internal Medicine; Visit Provider Internal Medicine | DX: R53.1 Weakness (principal) | CPT/HCPCS: 93010 ==